=== PATIENT | female | born 1955 | race Caucasian/White ===

== ENCOUNTER 2021-04-12 18:47 | Emergency (ER) | payer OTHER ==
--- OUTSIDE RECORDS SUMMARY | 2021-04-12 18:50 | XMS REPORT | Continuity of Care Document ---
:1955 Author Organization [facility] t Address [address] [place] [address] Care Team Providers Name Role Phone LINDY Attending Clinician Unavailable Garland Ngo MD Attending Clinician Only, Test Attending Clinician Unavailable Doctor Unassigned, Name Attending Clinician Unavailable ANISHA Attending Clinician Unavailable FAITH Attending Clinician Unavailable Damion RAI, L Attending Clinician LINDY Admitting Clinician Unavailable Garland Ngo MD Admitting Clinician Payers Payer Name Policy Type Policy Number Effective Date Expiration Date S ource Problems This patient has no known problems. Allergies, Adverse Reactions, Alerts Allergy Allergy Status Severity Reaction(s) Onset Inactive Treating Comm ents Source Name Type Date Date Clinician morphine DA Active [place] 2015-11 [facility] [place] codeine DA Active [place] 2015-11 [facility] Morphine Adverse Active nausea [facility] Reaction vomiting [facility] Codeine Adverse Active nausea [facility] Sulfate Reaction [facility] Medications Ordered Filled Start Stop Current Ordering Indication Dosage Frequency Signature Comments Components Source Medication Medication Date Date Medication? Clinician (SIG) Name Name Taina Her Yes Na Yan as needed [facility] 8[facility]14 for nausea [facility] Zoloft Zoloft Yes Na Yan [address] [facility] Mirtazapine Mirtazapine Yes Na Yan [address] [facility] Losartan Losartan Yes Na Yan [address] Potassium-H Pot[facility]-H [facility] CTZ [facility] Esomeprazol Esomeprazol Yes Na Yan [address] [facility] Magnesium e Magnesium L [facility] Gabapentin Gabapentin Yes Na Yan [address] [facility] Atenolol Atenolol Yes Na Yan [address] [facility] Procedures This patient has no known procedures. Encounters Start End Encounter Admission Attending Care Care Encounter Source Date/Time Date/Time Type Type Clinicians Facility Department ID 2021-04-12 2021-04-12 Outpatient [facility] [id number] [place] 00:00:00 00:00:[address] 2021-04-12 2021-04-12 Outpatient [facility] [id number] [place] 00:00:00 00:00:[address] 2021-03-29 2021-03-29 Outpatient [facility] [id number] [place] 00:00:00 00:00:[address] 2021-03-12 2021-03-13 Outpatient [facility] [id number] [place] 00:00:00 00:00:00 MAJOR [address] 2021-03-07 2021-03-07 Outpatient [facility] [id number] [place] 00:00:00 00:00:00 MAJOR [address] 2021-03-02 2021-03-02 Outpatient [facility] [id number] 2021-02-06 2021-02-06 Outpatient [facility] [id number] [place] 00:00:00 00:00:00 MAJOR [address] 2021-02-06 2021-02-06 Outpatient LINDY, [facility] [id number] [place] 00:00:00 00:00:00 MAJOR [address] 2021-02-02 2021-02-02 Outpatient [facility] [id number] [facility] St 00:00:00 00:00:00 [facility] 2020-11-18 2020-11-18 [facility] [id number] [facility] 00:00:00 00:00:00 [facility] 2020-11-08 2020-11-08 [facility] [id number] 06:53:00 08:36:00 Aleshia Pitt [id number] [place] 4.2.7.2.686 Surgical [id number] [place] [id number] 2020-11-07 2020-11-07 Laboratory Only, [facility] [id number] 13:00:29 13:15:29 Only Test Bright [id number] [place] 4.2.7.2.686 [place] [id number] 2020-11-07 2020-11-07 Orders Doctor SANGEETHA [id number] 00:00:00 00:00:00 Only Unassigned, ZA 350.1.13.10 [facility] 4.2.7.2.686 [id number] 2020-10-28 2020-10-28 [facility] [id number] [facility] 00:00:00 00:00:00 [facility] 2020-08-28 2020-08-28 Outpatient ANISHA, [facility] [id number] [place] 00:00:00 00:00:00 JESSICA [address] 2020-08-28 2020-08-28 Outpatient FAITH, [facility] [id number] [place] 00:00:00 00:00:[address] GITA [address] 2020-08-25 2020-08-25 Office Damion [facility] [id number] 10:46:34 11:05:51 Visit [facility] [id number] Surgical 2.7.2.686 [facility] [id number] Tuyet Novoa 2020-08-25 2020-08-25 [facility] [id number] [facility]00 [facility] Out[facility] Clinics 2020-07-02 2020-07-02 [facility] [id number] 13:30:00 13:30:00 [facility] [facility] Outpati ent Clinics 2020-06-30 2020-06-30 [facility] [id number] 10:00:00 10:00:00 [place] [facility] Medicine Outpati ent Clinics 2020-06-30 2020-06-30 [facility] [id number] 08:32:00 08:32:00 [place] [facility] [facility] Medicine Outpati ent Clinics 2020-03-17 2020-03-17 [facility] [id number] 15:52:00 15:52:00 [place] [facility] [facility] Outpati ent Clinics 2020-03-16 2020-03-16 [facility] [id number] 11:00:00 11:00:00 [place] [facility] Outpati ent Clinics 2020-02-15 2020-02-15 [facility] [id number] 10:00:00 10:00:00 t [facility] Outpati ent Clinics Results Test Description Test Time Test Comments Results Result [facility] phil Comments BREAST,BIOPSY 2018-11-19 09:06:00 RUN DATE: 11/19/18 [facility] PAGE 1 RUN TIME: 1021 Specimen Inquiry RUN USER: INTERFACE ALBERTO ENT: ROSMERY GREENBERG LOC: [facility] U #: [id number] AGE/SX: 63/F ROOM: RE11/18/18REG DR: Sangeetha Raines III, MD : 51 BED: DIS: STATUS: PRE REF TLOC: SPEC #: [id number] RECD: 11/18/18 STATUS: STEPHANIE SAMANTHA #: [id number] ANI: 11/18/18- [facility] DR: Sangeetha Raines III, MD ENTERED: 11/18/18 SP TYPE: BREABX OTHR DR: Salud Becerril MD ORDERED: LEVEL IV CODES: [id number] - BREAST, NOS COPIES TO: Sangeetha Raines III, MD [address] [place] [address] [place] [address] [place] [address] PROCEDURES: LEVEL IV (Incomplete) TISSUES: BREAST, NOS - LEFT BREAST BIOPSY CLINICAL HISTORY 63 year old, indeterminant mass, 14g x 3, ? cyst/mass not seen post biopsy (wpd) NOTE: Left breast 12:00 mass (0.7 cm): Biopsy: 11/18/18 @ 1025 In formalin: 11/18/18 @ 1026 Out of formalin: 11/18/18 @ 1825 FINAL DIAGNOSIS LEFT breast 12:00, CNB: - mild usual ductal hyperplasia - columnar cell change with microcalcifications Tissue code 1 CPT code(s): 87973 cds/kr CONTINUED ON NEXT PAGE RUN DATE: 11/19/18 [facility] PAGE 2 RUN TIME: 1021 Specimen Inquiry RUN USER: INTERFACE SPEC #: [id number] PATIENT: ROSMERY GREENBERG SHREYAS #[id number] (Continued) ------- GROSS DESCRIPTION ANATOMIC SOURCE OF TISSUE (per Requisition): Left breast 12:00 mass (0.7 cm) The specimen is received in a formalin-filled container, labeled with the patient's name and designated "left breast @ 12:00". The specimen consists of three off-white and yellow soft tissue cores ranging from 1.2 - 1.8 cm in length and is submitted in toto in one cassette. hz/wpd 01/02/19 @ 3985 MICROSCOPIC DESCRIPTION LEFT breast cores from 12:00 consists of benign breast parenchyma with columnar cell change with microcalcifications and foci of mild ductal hyperplasia without atypia. cristian/kirsty -- Signed Biju Del Rio 11/19/18 0906 END OF REPORT
[2021-04-12] MEDS ORDERED: HYDROCODONE/APAP 5/325 MG TAB ONE (19:40)
--- NOTE | 2021-04-12 19:58 | RAD REPORT ---
EXAM DESCRIPTION: RAD - Knee Left 3 View - 04/12/2021 7:47 pm CLINICAL HISTORY: trauma COMPARISON: Knee Left 3 view dated 12/09/2015 FINDINGS: Left total knee prosthesis in place. No radiographic evidence for loosening. No fracture o r acute finding of the [place] bone. There is extensive soft tissue injury anterior to the joint.No joint effusion confirmed on this study and no fluid fluid level in the joint space. No foreign body seen in the soft tissues. Intra-articular extension is unlikely but cannot be exclud ed solely on the basis of plain film. IMPRESSION: Left total knee prosthesis in place. No acute bone or implant finding. Extensive soft tissue injury anterior to the knee. Intra-articular extension not confirmed by plain f ilm but plain film alone is not able to exclude intra-articular involvement.
[2021-04-12] MEDS ORDERED: NA CHLORIDE 0.9% 100 ML ONE (21:43)
[2021-04-12] MEDS ORDERED: CEFAZOLIN SODIUM 1 GM/VIAL ONE (21:43)
[2021-04-12] MEDS ORDERED: TETANUS & DIPHTHERIA TOX,ADULT 0.5 ML VIAL ONE (21:44)
[2021-04-12 21:47] LABS: Absolute Lymphocytes (CBC) 1.4 K/uL (0.7-4.9); Basophils % 0.6 % (0-1.3); Hematocrit 30.6 % (36.0-45.0); Lymphocytes % 15.8 % (15.3-44.8); MPV 8.9 fL (7.6-11.3)
[2021-04-12 22:03] LABS: Protime INR 0.95
[2021-04-12 22:12] LABS: ALT/SGPT 21 U/L (12-78); AST/SGOT 18 U/L (15-37); Albumin 3.7 g/dL (3.4-5.0); Alkaline Phosphatase 89 U/L (45-117); BUN Blood Urea Nitrogen 26 mg/dL (7-18); Bicarbonate 26 mmol/L (21-32); Bilirubin Direct < 0.1 mg/dL (0-0.2); Bilirubin Total 0.3 mg/dL (0.2-1.0); Glucose Level 102 mg/dL (74-106); Potassium 4.6 mmol/L (3.5-5.1); Protein, Total 6.9 g/dL (6.4-8.2); Sodium Level 141 mmol/L (136-145)
--- NOTE | 2021-04-12 23:04 | EDPHYS ---
Physician Documentation [facility] Name: Estela Salvador Age: 65 yrs Sex: Female : 1955 Arrival Date: 04/12/2021 Time: 19:03 Bed 20 Private MD: ED Physician Jeffrey Leon HPI: 04/12 19:18 This 65 yrs old Female presents to ER via EMS with complaints of Knee Injury. 7 19:18 Details of fall: The patient fell from an upright position, while walking. Onset: The mh7 symptoms/episode began/occurred today, at 17:30. Associated injuries: The patient sustained left knee, painful injury, open surgical wound. Severity of symptoms: At their worst the symptoms were moderate, earlier today, in the emergency department the symptoms are unchanged. The patient has been recently seen by a physician: earlier today, Saw her orthopedic surgeon today for follow up s/p knee replacement surgery. States that she tripped and fell while walking up some stairs. She hit her left knee on concrete. She had knee replacement surgery of left knee 4 weeks ago and surgical wound is know open again after fall. She denies any head injury, LOC, or other complaints.. Historical: - Allergies: 19:08 No Known Allergies; ld1 - PMHx: 19:08 Renal Disease; ld1 - PSHx: 19:08 Knee surgery; ld1 - Immunization history:: Adult Immunizations up to date. - Social history:: Smoking status: Patient denies any tobacco usage or history of. ROS: 19:18 Constitutional: Negative for fever, chills, and weight loss, Eyes: Negative for injury, mh7 pain, redness, and discharge, ENT: Negative for injury, pain, and discharge, Neck: Negative for injury, pain, and swelling, Cardiovascular: Negative for chest pain, palpitations, and edema, Respiratory: Negative for shortness of breath, cough, wheezing, and pleuritic chest pain, Abdomen/GI: Negative for abdominal pain, nausea, vomiting, diarrhea, and constipation, Back: Negative for injury and pain, : Negative for injury, bleeding, discharge, and swelling, Neuro: Negative for headache, weakness, numbness, tingling, and seizure, Psych: Negative for depression, anxiety, suicide ideation, homicidal ideation, and hallucinations, Allergy/Immunology: Negative for hives, rash, and allergies. Exam: 19:18 Constitutional: This is a well developed, well nourished patient who is awake, alert, mh7 and in no acute distress. Head/Face: Normocephalic, atraumatic. Eyes: Pupils equal round and reactive to light, extra-ocular motions intact. Lids and lashes normal. Conjunctiva and sclera are non-icteric and not injected. Cornea within normal limits. Periorbital areas with no swelling, redness, or edema. Neck: Trachea midline, no thyromegaly or masses palpated, and no cervical lymphadenopathy. Supple, full range of motion without nuchal rigidity, or vertebral point tenderness. No Meningismus. Chest/axilla: Normal chest wall appearance and motion. Nontender with no deformity. No lesions are appreciated. Cardiovascular: Regular rate and rhythm with a normal S1 and S2. No gallops, murmurs, or rubs. Normal PMI, no JVD. No pulse deficits. Respiratory: Lungs have equal breath sounds bilaterally, clear to auscultation and percussion. No rales, rhonchi or wheezes noted. No increased work of breathing, no retractions or nasal flaring. Abdomen/GI: Soft, non-tender, with normal bowel sounds. No distension or tympany. No guarding or rebound. No evidence of tenderness throughout. Back: No spinal tenderness. No costovertebral tenderness. Full range of motion. Neuro: Awake and alert, GCS 15, oriented to person, place, time, and situation. Cranial nerves II-XII grossly intact. Motor strength 5/5 in all extremities. Sensory grossly intact. Cerebellar exam normal. Normal gait. Psych: Awake, alert, with orientation to person, place and time. Behavior, mood, and affect are within normal limits. 19:18 Musculoskeletal/extremity: Extremities: noted in the left anterior knee: pain, complete dehiscence of surgical wound of left knee. 19:18 Skin: injury, complete dehiscence of surgical wound on left knee. Vital Signs: 19:04 BP 142 / 62; Pulse 59; Resp 18; Temp 99.0(O); Pulse Ox 100% on R/A; Pain 3/10; ld1 20:14 BP 140 / 57; Pulse 62; Resp 16 S; Pulse Ox 97% on R/A; ad5 21:37 BP 136 / 63; Pulse 64; Resp 16 S; Pulse Ox 98% on R/A; ad5 22:39 BP 134 / 73; Pulse 65; Resp 16 S; Pulse Ox 98% on R/A; ad5 MDM: 22:54 Differential diagnosis: contusion, fracture, laceration. Data reviewed: vital signs, [facility] nurses notes, EMS record, lab test result(s), CBC, electrolytes, radiologic studies, plain films. Data interpreted: Pulse oximetry: on room air is 98 %. Interpretation: normal. Counseling: I had a detailed discussion with the patient and/or guardian regarding: the historical points, exam findings, and any diagnostic results supporting the discharge/admit diagnosis, lab results, radiology results, the need to transfer to another facility, [facility] does not immediately have the required specialist. Response to treatment: the patient's symptoms have mildly improved after treatment. 23:03 Patient medically screened. [facility] 04/12 20:50 Order name: SARS-COV-2 RT PCR; Complete Time: 20:52 [facility] 04/12 21:15 Order name: CBC with Diff; Complete Time: 22:04 [facility] 04/12 21:15 Order name: Basic Metabolic Panel; Complete Time: 22:53 [facility] 04/12 21:15 Order name: LFT's; Complete Time: 22:53 [facility] 04/12 21:15 Order name: Protime (+inr); Complete Time: 22:53 [facility] 04/12 19:17 Order name: Knee Left 3 View XRAY; Complete Time: 20:00 [facility] 04/12 21:15 Order name: Saline Lock; Complete Time: 21:37 [facility] 04/12 21:15 Order name: Ptt, Activated; Complete Time: 22:53 [facility] Administered Medications: 19:24 Drug: [place] (HYDROcodone-acetaminophen) 5 mg-325 mg 1 tabs {Note: RASS 0.} Route: PO; ad5 21:21 Follow up: Response: No adverse reaction; Pain is decreased ad5 21:32 Drug: Tetanus-Diphtheria Toxoid Adult 0.5 ml {[employer]: [employer] Exp: ad5 04/22/2022. Lot #: [id number]. } Route: IM; Site: right deltoid; 22:48 Follow up: Response: No adverse reaction ad5 21:36 Drug: Ancef (cefazolin) 1 grams Route: IVPB; Site: right antecubital; ad5 22:48 Follow up: IV Status: Completed infusion ad5 Disposition: 04/12/21 23:03 Patient has left against medical advice. Impression: Fall-Mechanical, Surgical Wound Dehiscence, Left Knee, Exposed Hardware. - Patients states they are going to Home. - Condition is Stable. - Discharge Instructions: Fall Prevention in the Home, Vupg-ae-Trad, Wound Dehiscence, Usfp-jn-Lcts. Follow up: Private Physician; When: 24 Hours; Reason: Worsening of condition, Recheck today's complaints, Continuance of care, Re-evaluation by your physician. - Problem is new. - Symptoms are unchanged. Signatures: Dispatcher [employer] Jeffrey Nice MD MD 7 Destini Bunch RN RN ld1 Greg Villagran ad5 Corrections: (The following items were deleted from the chart) 20:03 19:38 CORONAVIRUS+MR.LAB.BRZ ordered. EDMS EDMS 23:46 23:03 04/12/2021 23:03 Patients has left against medical advice. Impression: ad5 Fall-Mechanical; Surgical Wound Dehiscence, Left Knee, Exposed Hardware. Patient states they are going to Home. Condition is Stable. Follow up: Private Physician; When: 24 Hours; Reason: Worsening of condition, Recheck today's complaints, Continuance of care, Re-evaluation by your physician. Problem is new. Symptoms are unchanged. mh7
--- NOTE | 2021-04-12 23:04 | ER ---
Nurse's Notes [facility] Name: Estela Salvador Age: 65 yrs Sex: Female : 1955 Arrival Date: 04/12/2021 Time: 19:03 Bed 20 Private MD: Diagnosis: Fall-Mechanical;Surgical Wound Dehiscence, Left Knee, Exposed Hardware Presentation: 04/12 19:04 Chief complaint: EMS states: pt feel at 0600 and split open left knee, pt had a knee ld1 replacement 4 weeks ago. Coronavirus screen: At this time, the client does not indicate any symptoms associated with coronavirus-19. Ebola Screen: No symptoms or risks identified at this time. Initial Sepsis Screen: Does the patient meet any 2 criteria? No. Patient's initial sepsis screen is negative. Does the patient have a suspected source of infection? No. Patient's initial sepsis screen is negative. Risk Assessment: Do you want to hurt yourself or someone else? Patient reports no desire to harm self or others. Onset of symptoms was April 12, 2021. 19:04 Method Of Arrival: EMS: [facility] ld1 19:04 Acuity: OANH 3 ld1 Triage Assessment: 19:08 General: Appears in no apparent distress. uncomfortable, Behavior is calm, cooperative, ld1 appropriate for age. Pain: Complains of pain in lateral aspect of left knee Pain currently is 3 out of 10 on a pain scale. Quality of pain is described as throbbing, Pain began 1 hour ago. Is continuous. EENT: No signs and/or symptoms were reported regarding the EENT system. Neuro: Level of Consciousness is awake, alert, obeys commands, Oriented to person, place, time, situation, Appropriate for age. Cardiovascular: Capillary refill < 3 seconds Patient's skin is warm and dry. Respiratory: Airway is patent Respiratory effort is even, unlabored, Respiratory pattern is regular, symmetrical. GI: Abdomen is flat, non-distended. : No signs and/or symptoms were reported regarding the genitourinary system. Derm: No signs and/or symptoms reported regarding the dermatologic system. Musculoskeletal: Fall injury to left knee. Injury Description: Knee injury. Pt feel and split open left knee. Historical: - Allergies: 19:08 No Known Allergies; ld1 - PMHx: 19:08 Renal Disease; ld1 - PSHx: 19:08 Knee surgery; ld1 - Immunization history:: Adult Immunizations up to date. - Social history:: Smoking status: Patient denies any tobacco usage or history of. Screenin:12 Abuse screen: Denies threats or abuse. Denies injuries from another. Nutritional ld1 screening: No deficits noted. Tuberculosis screening: No symptoms or risk factors identified. Fall Risk None identified. Assessment: 19:12 Reassessment: See triage assessment. ld1 19:35 Reassessment: Patient appears in no apparent distress at this time. No changes from ad5 previously documented assessment. Patient is alert, oriented x 3, equal unlabored respirations, skin warm/dry/pink. 20:53 Reassessment: Patient appears in no apparent distress at this time. No changes from ad5 previously documented assessment. Patient and/or family updated on plan of care and expected duration. Pain level reassessed. Patient is alert, oriented x 3, equal unlabored respirations, skin warm/dry/pink. Pain: Complains of pain in LLE. 21:37 Reassessment: Patient appears in no apparent distress at this time. No changes from ad5 previously documented assessment. Patient and/or family updated on plan of care and expected duration. Pain level reassessed. Patient is alert, oriented x 3, equal unlabored respirations, skin warm/dry/pink. 22:39 Reassessment: Patient appears in no apparent distress at this time. No changes from ad5 previously documented assessment. Patient and/or family updated on plan of care and expected duration. Pain level reassessed. 23:44 Reassessment: Pt request to leave MD HAO at bedside speaking with pt regarding plan of ad5 care, questions/concerns addressed. 04/13 00:20 Reassessment: Pt assisted to wheelchair and vehicle by RN x 2. NAD noted upon pt ad5 leaving dept. Vital Signs: 04/12 19:04 BP 142 / 62; Pulse 59; Resp 18; Temp 99.0(O); Pulse Ox 100% on R/A; Pain 3/10; ld1 20:14 BP 140 / 57; Pulse 62; Resp 16 S; Pulse Ox 97% on R/A; ad5 21:37 BP 136 / 63; Pulse 64; Resp 16 S; Pulse Ox 98% on R/A; ad5 22:39 BP 134 / 73; Pulse 65; Resp 16 S; Pulse Ox 98% on R/A; ad5 ED Course: 19:03 Patient arrived in ED. ld1 19:03 Jeffrey Leon MD is Attending Physician. mh7 19:08 Triage completed. ld1 19:08 Arm band placed on right wrist. ld1 19:12 Destini Bunch, RN is Primary Nurse. ld1 19:12 Patient has correct armband on for positive identification. Placed in gown. Bed in low ld1 position. Call light in reach. Side rails up X2. Pulse ox on. NIBP on. Door closed. Noise minimized. Warm blanket given. 19:47 Knee Left 3 View XRAY In Process Unspecified. EDMS 20:14 No provider procedures requiring assistance completed. Dressings: saline soaked sterile ad5 gauze dressing to L knee. Wound care: to located on left knee was dressed with 4X4s, Kerlix, ABD pads, sterile saline soaked gauze, Patient tolerated well. 20:57 initiated a transfer with Jannette from [facility]. mw2 21:15 [facility] denied due to capacity. mw2 21:[address] Eugene Núñez's office got a hold of their answering service spoke to [facility] Trav. Trav took the patient's information and will contact Dr. Núñez. 21:34 doc to doc with the recreation facilities supervisor phsychian for Dr. Núñez. mw2 21:37 Initial lab(s) drawn, by me, sent to lab. Inserted saline lock: 20 gauge in right ad5 antecubital area, using aseptic technique. 21:40 called [facility] back spoke to Ines explained to her that we contacted 2 Dr. Núñez's office and they want the patient transfer back to [facility]. Ines stated " like Jannette said the Hospital is at capacity." Dr. Leon asked her " can we try getting the patient transferred to the Emergency Department?". Ines stated " the Emergency Department in at capacity as well." Dr. Leon got on the phone and explained that the patient needs to be transferred to [facility], and see if they can talk to someone to find her placement. Ines put Dr. Leon on hold for a while, and eventually she hung up. 21:56 called [facility] back spoke to Maria Elena and explained the situation about mw2 the transfer. She stated "like they have said before they are at capacity." Dr. Leon wanted to talk to Maria Elena to see if she can help us find placement for the patient. When I transferred the call Dr. Leon went to machine pecan picker but Maria Elena hung up. 22:06 called [facility] machine operator to see if we could talk to the [employer] L[employer] Automatic Window Repairer. They paged mw2 her and awaiting her call. 22:[address] Núñez's office again to see if they can help us find placement for the mw2 patient. 22:34 Called [facility] spoke with Maria Elena to see if there is other facilities mw that Dr. Núñez practices at. She stated " I'm not to sure let me see if there are any beds that have come available." currently put on hold. 22:46 I was taken off hold and Maria Elena stated "I checked to see if there are any beds and we mw2 still are at capacity, and I don't know if there are other places Dr. Núñez practices at." I asked "do you think you could contact him for us." She stated the only number that we have is his office. I can give you the number.". 23:15 Knee immobilizer applied on left knee. ad5 23:17 IV discontinued, intact, bleeding controlled, No redness/swelling at site. Pressure ad5 dressing applied. Administered Medications: 19:24 Drug: [place] (HYDROcodone-acetaminophen) 5 mg-325 mg 1 tabs {Note: RASS 0.} Route: PO; ad5 21:21 Follow up: Response: No adverse reaction; Pain is decreased ad5 21:32 Drug: Tetanus-Diphtheria Toxoid Adult 0.5 ml {Distribution Sales Representative: [employer] ([employer] Exp: ad5 04/22/2022. Lot #: [id number]. } Route: IM; Site: right deltoid; 22:48 Follow up: Response: No adverse reaction ad5 21:36 Drug: Ancef (cefazolin) 1 grams Route: IVPB; Site: right antecubital; ad5 22:48 Follow up: IV Status: Completed infusion ad5 Outcome: 23:17 AMA AMA form signed ad5 23:17 Condition: stable 23:17 Discharge instructions given to patient, significant other, Instructed on discharge instructions, follow up and referral plans. wound care, Demonstrated understanding of instructions, follow-up care, wound care. 23:46 Patient left the ED. ad5 Signatures: Dispatcher [employer] EDMS Fiorella Perry mw2 Jeffrey Leon MD MD 7 Destini Bunch RN RN ld1 Greg Villagran ad5 Corrections: (The following items were deleted from the chart) 20:54 20:53 Pain: Complains of pain in left knee ad5 ad5 22:42 20:57 initiated a transfer with Wesley from [place] [id number] mw2 :42 21:15 [facility] denied due to capacity [place] [id number] 22:42 21:40 called [facility] back spoke to Ines explained to her that we contacted Dr. alberto Núñez's office and they want the patient transfer back to [facility]. Ines stated " like Jannette said the Hospital is at capacity." Dr. Leon asked her " can we try getting the patient transferred to the Emergency Department?". Ines stated " the Emergency Department in at capacity as well." Dr. Leon got on the phone and explained that the patient needs to be transferred to [facility], and see if they can talk to someone to find her placement. Ines put Dr. Leon on hold for a while, and eventually she hung up. [facility] 22:42 21:56 called [facility] back spoke to Maria Elena and explained the situation about the [facility] transfer. She stated "like they have said before they are at capacity." Dr. Leon wanted to talk to Maria Elena to see if she can help us find placement for the patient. When I transferred the call Dr. Leon went to machine pecan picker but Maria Elena hung up. mw2
[2021-04-12 23:53] VITALS: TEMP 99
[2021-04-12 23:56] VITALS: O2SAT 98
[2021-04-12 23:57] VITALS: BP 134/73
== END 2021-04-12 23:46 | disposition left against medical advice (07) ==
LOC: ER 18:47
DX: T81.31XA Disruption of external operation (surgical) wound, not elsewhere classified, initial encounter (principal); W01.0XXA Fall on same level from slipping, tripping and stumbling without subsequent striking against object, initial encounter; Y93.01 Activity, walking, marching and hiking; Z96.652 Presence of left artificial knee joint; Z20.822 Contact with and (suspected) exposure to COVID-19; Z23 Encounter for immunization
CPT/HCPCS: 96365; 85025; 80048; 36415; 85610; 80076; 85730; 73562; 90471; 90714; 99284; U0003; J0690

== ENCOUNTER 2023-06-26 12:52 | Emergency (ER) | payer OTHER ==
--- OUTSIDE RECORDS SUMMARY | 2023-06-26 12:56 | XMS REPORT | Continuity of Care Document ---
:1955 Author Organization [facility] t Address [address] [place] [address] [place] [id number] Care Team Providers Name Role Phone ÁNGEL MELENDEZ Primary Care Physician Unavailable Kalyan Hong Attending Clinician Unavailable Lila Prescott Attending Clinician Unavailable Cathy Yan Attending Clinician Unavailable ALESHIA NGO Attending Clinician Unavailable Andrew Raines Attending Clinician Unavailable EUGENE ISRAEL Attending Clinician Unavailable ILIA SILVA Attending Clinician Unavailable Gucci Horan Attending Clinician Unavailable XOCHILT ALFONSO Attending Clinician Unavailable MD XOCHILT ALFONSO Attending Clinician Unavailable MD EUGENE ISRAEL Attending Clinician Unavailable Aleshia Ngo MD Attending Clinician Only, Adc Test Attending Clinician Unavailable Doctor Unassigned, [place] Attending Clinician Unavailable MD GITA CUEVAS Attending Clinician Unavailable GITA CUEVAS Attending Clinician Unavailable JESSICA LANCASTER Attending Clinician Unavailable Ilia Silva MD Attending Clinician ALESHIA NGO Admitting Clinician Unavailable Andrew Raines Admitting Clinician Unavailable Physician, No Primary or Family Admitting Clinician UnavailXOCHILT Bains Admitting Clinician Unavailable MD XOCHILT ALFONSO Admitting Clinician Unavailable EUGENE ISRAEL Admitting Clinician Unavailable MD EUGENE ISRAEL Admitting Clinician Unavailable Jeni RAI, Aleshia Haque Admitting Clinician MD GITA CUEVAS Admitting Clinician Unavailable Payers Payer Name Policy Type Policy Number Effective Date Expiration Date S katheryn [employer] [place] - [id number] 2008 OUT OF STATE 00:00:00 [employer] [id number] 2018 00:00:00 Problems Condition Condition Condition Status Onset Resolution Last Treating Co mments Source Name Details Category Date Date Treatment Clinician Date Left knee Left knee Disease Active Uni vers pain pain 1-26 ity of 00:00: [place] [address] Medical Branch [id number] Decreased Problem Com mon hearing of Spirit left ear - [facility] [id number] Mixed Problem Common hyperlipid Spirit emia - [facility] [id number] Neuropathy Problem Co mmon Spirit - [facility] [id number] Chronic Problem Common fatigue [facility] [id number] Gastroesop Problem Co mmon hageal Spirit reflux - [facility] disease [facility] esophagiti Medica l s [place] [id number] Depression Problem Co mmon with Spirit anxiety - [facility] Vitamin D Vitamin D Problem Com mon deficiency deficiency Sp deloris - [facility] [id number] Primary Problem Commo n osteoarthr Spirit itis of - [facility] both knees [facility] [id number] Body mass Problem Com mon index Spirit (BMI) - [facility] 37.0-37.9, [facility] [id number] Primary Problem Common insomnia [facility] - [facility] [id number] Elevated Problem Commo n blood Spirit pressure - [facility] reading with [facility] diagnosis Medical of [place] hypertensi on [id number] +5th digit Problem Co mmon eff Spirit 08/17/20*CK - [facility] D (chronic St kidney [facility] disease), Medical stage III Center [id number] Stage 3b Problem Comm on chronic Spirit kidney - [facility] disease ([facility] Allergies, Adverse Reactions, Alerts Allergy Allergy Status Severity Reaction(s) Onset Inactive Treating Comm ents Source Name Type Date Date Clinician morphine DA Active MO 2015-11 [facility] 12-26 Clear 00:00: [place] 00 [facility] codeine DA Active MO 2015-11 [facility] 12-26 Clear 00:00: [place] 00 [facility] morphine DA Active MO NAUSEA 2015-11 [facility] 12-26 [place] 00:00: d 00 [facility] codeine DA Active MO NAUSEA 2015-11 [facility] 12-26 [place] 00:00: d 00 [facility] codeine codeine Active nausea and Comm on vomiting [facility] morphine morphine Active nausea and Co mmon vomiting [facility] NO KNOWN Drug Active Univers ALLERGIE Class ity of S [facility] Social History Social Habit Start Date Stop Date Quantity Comments Source Exposure to Not sure [facility] SARS-CoV-2 [place] [facility] (event) Branch History of Common Spirit - Tobacco Use [facility] Sex Assigned At Common Sp deloris - [facility] Tobacco use and 2020-11-06 2020-11-06 Never used Universit y of exposure 00:00:00 00:00:00 [facility] Alcohol intake 2020-11-06 2020-11-06 Current University 00:00:00 00:00:00 non-drinker of [facility] alcohol Branch (finding) Smoking Status Start Date Stop Date Source Never Smoker [facility] Medications Ordered Filled Start Stop Current Ordering Indication Dosage Frequency Signature Comments Components Source Medication Medication Date Date Medication? Clinician (SIG) Name Name Scopolamine Scopolamine 2021-11- No Scopolamin 1 MG/3DAYS 1 MG/3DAYS 12-08 e 1 00:00: 00:00 MG/3DAYS 00 :00 ZyrTEC ZyrTEC No 1{table QD ZyrTEC Allergy 10 Allergy 10 06-18 t} Allergy 10 MG MG 00:00: MG 00 Flonase Flonase No QD Flonase 06-18 00:00: 00 Flonase Flonase 0 No QD Flonase 06-18 00:00: 00 ZyrTEC ZyrTEC No 1{table QD ZyrTEC Allergy 10 Allergy 10 8-02 t} Allergy 10 MG MG 00:00: MG 00 ZyrTEC ZyrTEC No 1{table QD ZyrTEC Allergy 10 Allergy 10 06-18 t} Allergy 10 MG MG 00:00: MG 00 Flonase Flonase No QD Flonase 06-18 00:00: 00 Pantoprazol Pantoprazol 2021-0 No 1{table QD Pantoprazo e Sodium 40 e Sodium 40 7-21 t} le Sodium MG MG 00:00: 40 MG 00 Pantoprazol Pantoprazol No 1{table QD Pantoprazo e Sodium 40 e Sodium 40 721 t} le Sodium MG MG 00:00: 40 MG 00 Pantoprazol Pantoprazol No 1{table QD Pantoprazo e Sodium 40 e Sodium 40 7-21 t} le Sodium MG MG 00:00: 40 MG 00 Pantoprazol Pantoprazol No 1{table QD Pantoprazo e Sodium 40 e Sodium 40 7-21 t} le Sodium MG MG 00:00: 40 MG 00 Benzonatate Benzonatate 2021- No TID Benzonatat 200 MG 200 MG 06-03 e 200 MG 00:00: 00:00 00 :00 Benzonatate Benzonatate 2021- No TID Benzonatat 200 MG 200 MG 06-03 e 200 MG 00:00: 00:00 00 :00 esomeprazol 2019- Yes 40mg Take 40 mg Univers e 40 mg 2-23 by mouth. ity of capsule 14:36: [place] 14 Medical Branch losartan-hy 2019-11 Yes 1{tbl} Take 1 Un hang drochloroth 2-23 tablet by ity of iazide 14:36: mouth. [place] 100-12.5 mg 14 Medical per tablet Branch lactated 2019-11 Yes 1000mL at 100 Unive rs ringers IV 2-23 mL/hr, ity of infusion 14:15: 1,000 mL, [place] 1[place]000 [place] 00 IV Medical Infusion, Branch CONTINUOUS , Starting Fri11/08/20 at 0815, Until Discontinu ed, Routine, PACU ondansetron 2019-11 Yes 4mg 4 mg, Slow Univers (ZOFRAN 2-23 IV Push, ity of (PF)) 14:00: PRN, 1 [place] injection 4 21 dose, Medical mg Starting Branch Fri11/08/20 at 0800, Until Discontinu ed, Routine, Nausea and Vomiting (N/V), PACU lactated 2019-11 2020- No 1000mL at 42 Unive rs ringers IV 2-23 12-23 mL/hr, ity of infusion 13:15: 13:14 1,000 mL, [place] as 1,000 mL 00 :00 IV Medical Infusion, Branch ONCE, 1 dose, Fri11/08/20 at 0715, Routine, DSU Pre-op esomeprazol 2019-11 Yes 40mg Take 40 mg Univers e 40 mg 0-09 by mouth. ity of capsule 15:59: [address] losartan-hy 2019-11 Yes 1{tbl} Take 1 Un hang drochloroth 0-09 tablet by ity of iazide 15:59: mouth. [place] 100-12.5 mg 53 Medical per tablet Branch esomeprazol 2019-11 Yes 40mg Take 40 mg Univers e 40 mg 0-09 by mouth. ity of capsule 15:59: [address] losartan-hy 2019-11 Yes 1{tbl} Take 1 Un hang drochloroth 0-09 tablet by ity of iazide 15:59: mouth. [place] 100-12.5 mg 53 Medical per tablet Branch esomeprazol 2019-11 Yes 40mg Take 40 mg Univers e 40 mg 0-09 by mouth. ity of capsule 15:59: [address] losartan-hy 2019-11 Yes 1{tbl} Take 1 Un hang drochloroth 0-09 tablet by ity of iazide 15:59: mouth. [place] 100-12.5 mg 53 Medical per tablet Branch esomeprazol 2019-11 Yes 40mg Take 40 mg Univers e 40 mg 0-09 by mouth. ity of capsule 15:59: [address] losartan-hy 2019-11 Yes 1{tbl} Take 1 Un hang drochloroth 0-09 tablet by ity of iazide 15:59: mouth. [place] 100-12.5 mg 53 Medical per tablet Branch methylPREDN 2019-11 Yes [id number] 84mg Take 21 Univers ISolone 0-09 tablets by ity of (MEDROL, 00:00: mouth [place] ZENY,) 4 mg 00 SEE-INSTRU Med ical tablets CTIONS. Branch follow package directions diclofenac 2020- Yes [id number] 75mg Take 1 U nivers 75 mg EC 0-09 tablet by ity of tablet 00:00: mouth (two) Medical times Branch daily with meals. methylPREDN 2020- Yes [id number] 84mg Take 21 Univers ISolone 0-09 tablets by ity of (MEDROL, 00:00: mouth [place] ZENY,) 4 mg 00 SEE-INSTRU Med ical tablets CTIONS. Branch follow package directions diclofenac 2019- Yes [id number] 75mg Take 1 U nivers 75 mg EC 0-09 tablet by ity of tablet 00:00: mouth (two) Medical times Branch daily with meals. methylPREDN 2020- Yes [id number] 84mg Take 21 Univers ISolone 0-09 tablets by ity of (MEDROL, 00:00: mouth [place] ZENY,) 4 mg 00 SEE-INSTRU Med ical tablets CTIONS. Branch follow package directions diclofenac 2019- Yes [id number] 75mg Take 1 U nivers 75 mg EC 0-09 tablet by ity of tablet 00:00: mouth (two) Medical times Branch daily with meals. methylPREDN 2019- Yes [id number] 84mg Take 21 Univers ISolone 0-09 tablets by ity of (MEDROL, 00:00: mouth [place] ZENY,) 4 mg 00 SEE-INSTRU Med ical tablets CTIONS. Branch follow package directions diclofenac 2019- Yes [id number] 75mg Take 1 U nivers 75 mg EC 0-09 tablet by ity of tablet 00:00: mouth (two) Medical times Branch daily with meals. methylPREDN 2020- Yes [id number] 84mg Take 21 Univers ISolone 0-09 tablets by ity of (MEDROL, 00:00: mouth [place] ZENY,) 4 mg 00 SEE-INSTRU Med ical tablets CTIONS. Branch follow package directions diclofenac 2019- Yes [id number] 75mg Take 1 U nivers 75 mg EC 0-09 tablet by ity of tablet 00:00: mouth (two) Medical times Branch daily with meals. SERTraline 2019- Yes Univers 50 mg 9-16 ity of tablet 00:00: [place] [address] Medical Branch SERTraline 2020-0 Yes Univers 50 mg 9-16 ity of tablet 00:00: [place] [address] Medical Branch SERTraline 2020-0 Yes Univers 50 mg 9-16 ity of tablet 00:00: [place] [address] Medical Branch SERTraline 2020-0 Yes Univers 50 mg 9-16 ity of tablet 00:00: [place] [address] Medical Branch SERTraline 2020-0 Yes Univers 50 mg 9-16 ity of tablet 00:00: [place] [address] Medical Branch amLODIPine 2020-0 Yes Univers 5 mg tablet 07-20 ity of 00:00: [place] [address] Medical Branch atenoloL 25 2020-0 Yes Univer s mg tablet 07-20 ity of 00:00: [place] [address] Medical Branch amLODIPine 2020-0 Yes Univers 5 mg tablet 07-20 ity of 00:00: [place] [address] Medical Branch atenoloL 25 2020-0 Yes Univer s mg tablet 07-20 ity of 00:00: [place] [address] Medical Branch amLODIPine 2020-0 Yes Univers 5 mg tablet 07-20 ity of 00:00: [place] [address] Medical Branch atenoloL 25 2020-0 Yes Univer s mg tablet 07-20 ity of 00:00: [place] [address] Medical Branch amLODIPine 2020-0 Yes Univers 5 mg tablet 07-20 ity of 00:00: [place] [address] Medical Branch atenoloL 25 2020-0 Yes Univer s mg tablet 07-20 ity of 00:00: [place] [address] Medical Branch amLODIPine 2020-0 Yes Univers 5 mg tablet 07-20 ity of 00:00: [place] [address] Medical Branch atenoloL 25 2020-0 Yes Univer s mg tablet 07-20 ity of 00:00: [place] [address] Medical Branch Zofran Zofran 2020-0 Yes Na Yan as needed C ommon 8-14 for nausea Spirit 00:00: - [facility] 00 [facility] Zofran 4 MG Zofran 4 MG 2020-0 No BID Zofran 4 8-14 MG 00:00: 00 Zofran 4 MG Zofran 4 MG 2020-0 No BID Zofran 4 8-14 MG 00:00: 00 Zofran 4 MG Zofran 4 MG 2020-0 No BID Zofran 4 8-14 MG 00:00: 00 Zofran 4 MG Zofran 4 MG 2020-0 No BID Zofran 4 8-14 MG 00:00: 00 Zofran 4 MG Zofran 4 MG 2020-0 No BID Zofran 4 8-14 MG 00:00: 00 Zofran 4 MG Zofran 4 MG 2020-0 No BID Zofran 4 8-14 MG 00:00: 00 Zofran 4 MG Zofran 4 MG 2020-0 No BID Zofran 4 8-14 MG 00:00: 00 Zofran 4 MG Zofran 4 MG 2020-0 No BID Zofran 4 8-14 MG 00:00: 00 Zofran 4 MG Zofran 4 MG 2020-0 No BID Zofran 4 8-14 MG 00:00: 00 Zofran 4 MG Zofran 4 MG 2020-0 No BID Zofran 4 8-14 MG 00:00: 00 Zofran 4 MG Zofran 4 MG 2020-0 No BID Zofran 4 8-14 MG 00:00: 00 Zofran 4 MG Zofran 4 MG 2020-0 No BID Zofran 4 8-14 MG 00:00: 00 Zofran 4 MG Zofran 4 MG 2020-0 No BID Zofran 4 8-14 MG 00:00: 00 mirtazapine 2020-0 Yes 15mg Take 15 mg Univers 15 mg 6-26 by mouth. ity of tablet 00:00: [address] mirtazapine 2020-0 Yes 15mg Take 15 mg Univers 15 mg 6-26 by mouth. ity of tablet 00:00: [address] mirtazapine 2020-0 Yes 15mg Take 15 mg Univers 15 mg 6-26 by mouth. ity of tablet 00:00: [address] mirtazapine 2020-0 Yes 15mg Take 15 mg Univers 15 mg 6-26 by mouth. ity of tablet 00:00: [address] mirtazapine 2020-0 Yes 15mg Take 15 mg Univers 15 mg 6-26 by mouth. ity of tablet 00:00: [address] Zoloft Zoloft 2019-0 Yes Na Yan 1 tablet Co mmon 4-30 Spirit 00:00: - [facility] 00 [facility] methylPREDN 2016- Yes 84mg Take 21 Uni vers ISolone 0-21 tablets by ity of (MEDROL, 00:00: mouth [place] ZENY,) 4 mg 00 SEE-INSTRU Med ical tablets CTIONS. Branch follow package directions diclofenac 2015-11 Yes 75mg Take 1 Unive rs (VOLTAREN) 0-21 tablet by ity of 75 mg EC 00:00: mouth 2 [place] tablet 00 (two) Medical times Branch daily with meals. methylPREDN 2015-11 Yes 84mg Take 21 Uni vers ISolone 0-21 tablets by ity of (MEDROL, 00:00: mouth [place] ZENY,) 4 mg 00 SEE-INSTRU Med ical tablets CTIONS. Branch follow package directions diclofenac 2015-11 Yes 75mg Take 1 Unive rs (VOLTAREN) 0-21 tablet by ity of 75 mg EC 00:00: mouth 2 [place] tablet 00 (two) Medical times Branch daily with meals. methylPREDN 2015-11 Yes 84mg Take 21 Uni vers ISolone 0-21 tablets by ity of (MEDROL, 00:00: mouth [place] ZENY,) 4 mg 00 SEE-INSTRU Med ical tablets CTIONS. Branch follow package directions diclofenac 2015-11 Yes 75mg Take 1 Unive rs (VOLTAREN) 0-21 tablet by ity of 75 mg EC 00:00: mouth 2 [place] tablet 00 (two) Medical times Branch daily with meals. methylPREDN 2015-11 Yes 84mg Take 21 Uni vers ISolone 0-21 tablets by ity of (MEDROL, 00:00: mouth [place] ZENY,) 4 mg 00 SEE-INSTRU Med ical tablets CTIONS. Branch follow package directions diclofenac 2015-11 Yes 75mg Take 1 Unive rs (VOLTAREN) 0-21 tablet by ity of 75 mg EC 00:00: mouth 2 [place] tablet 00 (two) Medical times Branch daily with meals. methylPREDN 2015-11 Yes 84mg Take 21 Uni vers ISolone 0-21 tablets by ity of (MEDROL, 00:00: mouth [place] ZENY,) 4 mg 00 SEE-INSTRU Med ical tablets CTIONS. Branch follow package directions diclofenac 2015-11 Yes 75mg Take 1 Unive rs (VOLTAREN) 0-21 tablet by ity of 75 mg EC 00:00: mouth 2 [place] tablet 00 (two) Medical times Branch daily with meals. DULoxetine 2015-11 Yes Univers (CYMBALTA) 0-08 ity of 20 mg 00:00: [place] capsule 00 Medical Branch DULoxetine 2015-11 Yes Univers (CYMBALTA) 0-08 ity of 20 mg 00:00: [place] capsule 00 Medical Branch DULoxetine 2015-11 Yes Univers (CYMBALTA) 0-08 ity of 20 mg 00:00: [place] capsule 00 Medical Branch DULoxetine 2015-11 Yes Univers (CYMBALTA) 0-08 ity of 20 mg 00:00: [place] capsule 00 Medical Branch DULoxetine 2015-11 Yes Univers (CYMBALTA) 0-08 ity of 20 mg 00:00: [place] capsule 00 Medical Branch cyanocobala 2015-11 Yes Univer s min 0-06 ity of (VITAMIN 00:00: [place] B12) 1,000 00 Medical mcg/mL Branch injection cyanocobala 2015-11 Yes Univer s min 0-06 ity of (VITAMIN 00:00: [place] B12) 1,000 00 Medical mcg/mL Branch injection cyanocobala 2015-11 Yes Univer s min 0-06 ity of (VITAMIN 00:00: [place] B12) 1,000 00 Medical mcg/mL Branch injection cyanocobala 2015-11 Yes Univer s min 0-06 ity of (VITAMIN 00:00: [place] B12) 1,000 00 Medical mcg/mL Branch injection cyanocobala 2015-11 Yes Univer s min 0-06 ity of (VITAMIN 00:00: [place] B12) 1,000 00 Medical mcg/mL Branch injection pravastatin 2015-11 Yes Univer s (PRAVACHOL) 0-05 ity of 40 mg 00:00: [place] tablet 00 Medical Branch pravastatin 2015-11 Yes Univer s (PRAVACHOL) 0-05 ity of 40 mg 00:00: [place] tablet 00 Medical Branch pravastatin 2015-11 Yes Univer s (PRAVACHOL) 0-05 ity of 40 mg 00:00: [place] tablet 00 Medical Branch pravastatin 2015-11 Yes Univer s (PRAVACHOL) 0-05 ity of 40 mg 00:00: [place] tablet 00 Medical Branch pravastatin 2015-11 Yes Univer s (PRAVACHOL) 0-05 ity of 40 mg 00:00: [place] tablet 00 Medical Branch sulfamethox 0 Yes Univer s azole-trime 9-12 ity of thoprim 00:00: [place] (BACTRIM 00 Medical DS) 800-160 Branch mg per tablet sulfamethox 2016-0 Yes Univer s azole-trime 9-12 ity of thoprim 00:00: [place] (BACTRIM 00 Medical DS) 800-160 Branch mg per tablet sulfamethox 2016-0 Yes Univer s azole-trime 9-12 ity of thoprim 00:00: [place] (BACTRIM 00 Medical DS) 800-160 Branch mg per tablet sulfamethox 2016-0 Yes Univer s azole-trime 9-12 ity of thoprim 00:00: [place] (BACTRIM 00 Medical DS) 800-160 Branch mg per tablet sulfamethox 2016-0 Yes Univer s azole-trime 9-12 ity of thoprim 00:00: [place] (BACTRIM 00 Medical DS) 800-160 Branch mg per tablet Fenoprofen Yes TAKE ONE Uni vers (NALFON) 8-11 (1) ity of 400 mg Cap 00:00: [place]) [place] 00 BY MOUTH Medical TWICE A Branch DAY NEEDED. Fenoprofen Yes TAKE ONE Uni vers (NALFON) 8-11 (1) ity of 400 mg Cap 00:00: [place](S) [place] 00 BY MOUTH Medical TWICE A Branch DAY NEEDED. Fenoprofen Yes TAKE ONE Uni vers (NALFON) 8-11 (1) ity of 400 mg Cap 00:00: [place]SULE(S) [place] 00 BY MOUTH Medical TWICE A Branch DAY NEEDED. Fenoprofen Yes TAKE ONE Uni vers (NALFON) 8-11 (1) ity of 400 mg Cap 00:00: [place]SULE(S) [place] 00 BY MOUTH Medical TWICE A Branch DAY NEEDED. Fenoprofen Yes TAKE ONE Uni vers (NALFON) 8-11 (1) ity of 400 mg Cap 00:00: [place]SULE(S) [place] 00 BY MOUTH Medical TWICE A Branch DAY NEEDED. methylPREDN 0 Yes 84mg Take 21 Uni vers ISolone 1-26 Tabs by ity of (MEDROL, 00:00: mouth [place] ZENY,) 4 mg 00 SEE-INSTRU Med ical tablets CTIONS. Branch follow package directions methylPREDN 0 Yes 84mg Take 21 Uni vers ISolone 1-26 Tabs by ity of (MEDROL, 00:00: mouth [place] ZENY,) 4 mg 00 SEE-INSTRU Med ical tablets CTIONS. Branch follow package directions methylPREDN Yes 84mg Take 21 Uni vers ISolone 1-26 Tabs by ity of (MEDROL, 00:00: mouth [place] ZENY,) 4 mg 00 SEE-INSTRU Med ical tablets CTIONS. Branch follow package directions methylPREDN Yes 84mg Take 21 Uni vers ISolone 1-26 Tabs by ity of (MEDROL, 00:00: mouth [place] ZENY,) 4 mg 00 SEE-INSTRU Med ical tablets CTIONS. Branch follow package directions methylPREDN Yes 84mg Take 21 Uni vers ISolone 1-26 Tabs by ity of (MEDROL, 00:00: mouth [place] ZENY,) 4 mg 00 SEE-INSTRU Med ical tablets CTIONS. Branch follow package directions traMADOL Yes Univers (ULTRAM) 50 1-24 ity of mg tablet 00:00: [place] [facility] traMADOL Yes Univers (ULTRAM) 50 1-24 ity of mg tablet 00:00: [place] [facility] traMADOL 0 Yes Univers (ULTRAM) 50 1-24 ity of mg tablet 00:00: [place] [facility] traMADOL 0 Yes Univers (ULTRAM) 50 1-24 ity of mg tablet 00:00: [place] [facility] traMADOL 0 Yes Univers (ULTRAM) 50 1-24 ity of mg tablet 00:00: [place] [facility] zolpidem Yes Univers (AMBIEN CR) 1-17 ity of 12.5 mg CR 00:00: [place] tablet 00 [facility] zolpidem 0 Yes Univers (AMBIEN CR) 1-17 ity of 12.5 mg CR 00:00: [place] tablet 00 Medical [place] zolpidem 0 Yes Univers (AMBIEN CR) 1-17 ity of 12.5 mg CR 00:00: [place] tablet 00 [facility] zolpidem 0 Yes Univers (AMBIEN CR) 1-17 ity of 12.5 mg CR 00:00: [place] tablet 00 [facility] zolpidem 0 Yes Univers (AMBIEN CR) 1-17 ity of 12.5 mg CR 00:00: [place] tablet 00 Medical Branch gabapentin Yes Univers (NEURONTIN) 1-12 ity of 600 mg 00:00: [place] tablet 00 Medical Branch gabapentin Yes Univers (NEURONTIN) 1-12 ity of 600 mg 00:00: [place] tablet 00 Medical Branch gabapentin Yes Univers (NEURONTIN) 1-12 ity of 600 mg 00:00: [place] tablet 00 Medical Branch gabapentin Yes Univers (NEURONTIN) 1-12 ity of 600 mg 00:00: [place] tablet Medical Branch gabapentin Yes Univers (NEURONTIN) 1-12 ity of 600 mg 00:00: [place] tablet 00 Medical Branch lisinopril- 2014-11 Yes Univer s hydrochloro 2-15 ity of thiazide 00:00: [place] ([facility], Medical [facility] Branch 20-25 mg per tablet lisinopril- 2014-11 Yes Univer s hydrochloro 2-15 ity of thiazide 00:00: [place] ([facility] Medical [facility] Branch 20-25 mg per tablet lisinopril- 2014-11 Yes Univer s hydrochloro 2-15 ity of thiazide 00:00: [place] ([facility] Medical [facility] Branch 20-25 mg per tablet lisinopril- 2014-11 Yes Univer s hydrochloro 2-15 ity of thiazide 00:00: [place] ([facility] Medical [facility] Branch 20-25 mg per tablet lisinopril- 2014-11 Yes Univer s hydrochloro 2-15 ity of thiazide 00:00: [place] ([place] [id number] Medical [facility]) Branch 20-25 mg per tablet Mirtazapine Mirtazapine Yes [place] 1 tablet Common at bedtime [facility] Losartan Losartan Yes [place] 1 tablet Common Potassium-H Potassium-H S [facility] CTZ CTZ [facility] Esomeprazol Esomeprazol Yes Na [place] 1 capsule Common e Magnesium e Magnesium S [facility] Gabapentin Gabapentin Yes [place] 1 tablet Common [facility] Atenolol Atenolol Yes [place] 1 tablet Common [facility] Mirtazapine Mirtazapine No Mirtazapin 15 MG 15 MG e 15 MG Sertraline Sertraline No Sertraline HCl 50 MG HCl 50 MG HCl 50 MG Esomeprazol Esomeprazol No Esomeprazo e Magnesium e Magnesium le 40 MG 40 MG Magnesium 40 MG amLODIPine amLODIPine No amLODIPine Besylate 5 Besylate 5 Besylate 5 MG MG MG Gabapentin Gabapentin No Gabapentin 600 MG 600 MG 600 MG Atenolol 25 Atenolol 25 No Atenolol MG MG 25 MG Losartan Losartan No Losartan Potassium-H Potassium-H Potassium- CTZ CTZ HCTZ 100-12.5 MG 100-12.5 MG 100-12.5 MG Sertraline Sertraline No Sertraline HCl 50 MG HCl 50 MG HCl 50 MG Mirtazapine Mirtazapine No Mirtazapin 15 MG 15 MG e 15 MG Esomeprazol Esomeprazol No Esomeprazo e Magnesium e Magnesium le 40 MG 40 MG Magnesium 40 MG Atenolol 25 Atenolol 25 No Atenolol MG MG 25 MG Gabapentin Gabapentin No Gabapentin 600 MG 600 MG 600 MG Losartan Losartan No Losartan Potassium-H Potassium-H Potassium- CTZ CTZ HCTZ 100-12.5 MG 100-12.5 MG 100-12.5 MG amLODIPine amLODIPine No amLODIPine Besylate 5 Besylate 5 Besylate 5 MG MG MG Sertraline Sertraline No Sertraline HCl 50 MG HCl 50 MG HCl 50 MG Mirtazapine Mirtazapine No Mirtazapin 15 MG 15 MG e 15 MG Esomeprazol Esomeprazol No Esomeprazo e Magnesium e Magnesium le 40 MG 40 MG Magnesium 40 MG Atenolol 25 Atenolol 25 No Atenolol MG MG 25 MG Gabapentin Gabapentin No Gabapentin 600 MG 600 MG 600 MG Losartan Losartan No Losartan Potassium-H Potassium-H Potassium- CTZ CTZ HCTZ 100-12.5 MG 100-12.5 MG 100-12.5 MG amLODIPine amLODIPine No amLODIPine Besylate 5 Besylate 5 Besylate 5 MG MG MG Sertraline Sertraline No Sertraline HCl 50 MG HCl 50 MG HCl 50 MG Mirtazapine Mirtazapine No Mirtazapin 15 MG 15 MG e 15 MG Esomeprazol Esomeprazol No Esomeprazo e Magnesium e Magnesium le 40 MG 40 MG Magnesium 40 MG Atenolol 25 Atenolol 25 No Atenolol MG MG 25 MG Gabapentin Gabapentin No Gabapentin 600 MG 600 MG 600 MG Losartan Losartan No Losartan Potassium-H Potassium-H Potassium- CTZ CTZ HCTZ 100-12.5 MG 100-12.5 MG 100-12.5 MG amLODIPine amLODIPine No amLODIPine Besylate 5 Besylate 5 Besylate 5 MG MG MG Sertraline Sertraline No Sertraline HCl 50 MG HCl 50 MG HCl 50 MG Mirtazapine Mirtazapine No Mirtazapin 15 MG 15 MG e 15 MG Esomeprazol Esomeprazol No Esomeprazo e Magnesium e Magnesium le 40 MG 40 MG Magnesium 40 MG Atenolol 25 Atenolol 25 No Atenolol MG MG 25 MG Gabapentin Gabapentin No Gabapentin 600 MG 600 MG 600 MG Losartan Losartan No Losartan Potassium-H Potassium-H Potassium- CTZ CTZ HCTZ 100-12.5 MG 100-12.5 MG 100-12.5 MG amLODIPine amLODIPine No amLODIPine Besylate 5 Besylate 5 Besylate 5 MG MG MG amLODIPine amLODIPine No amLODIPine Besylate 5 Besylate 5 Besylate 5 MG MG MG Gabapentin Gabapentin No Gabapentin 600 MG 600 MG 600 MG Esomeprazol Esomeprazol No Esomeprazo e Magnesium e Magnesium le 40 MG 40 MG Magnesium 40 MG Sertraline Sertraline No Sertraline HCl 50 MG HCl 50 MG HCl 50 MG Mirtazapine Mirtazapine No Mirtazapin 15 MG 15 MG e 15 MG Atenolol 25 Atenolol 25 No Atenolol MG MG 25 MG Losartan Losartan No Losartan Potassium-H Potassium-H Potassium- CTZ CTZ HCTZ 100-12.5 MG 100-12.5 MG 100-12.5 MG Mirtazapine Mirtazapine No Mirtazapin 15 MG 15 MG e 15 MG amLODIPine amLODIPine No amLODIPine Besylate 5 Besylate 5 Besylate 5 MG MG MG Sertraline Sertraline No Sertraline HCl 50 MG HCl 50 MG HCl 50 MG Gabapentin Gabapentin No Gabapentin 600 MG 600 MG 600 MG Losartan Losartan No Losartan Potassium-H Potassium-H Potassium- CTZ CTZ HCTZ 100-12.5 MG 100-12.5 MG 100-12.5 MG Atenolol 25 Atenolol 25 No Atenolol MG MG 25 MG Mirtazapine Mirtazapine No Mirtazapin 15 MG 15 MG e 15 MG amLODIPine amLODIPine No amLODIPine Besylate 5 Besylate 5 Besylate 5 MG MG MG Sertraline Sertraline No Sertraline HCl 50 MG HCl 50 MG HCl 50 MG Gabapentin Gabapentin No Gabapentin 600 MG 600 MG 600 MG Losartan Losartan No Losartan Potassium-H Potassium-H Potassium- CTZ CTZ HCTZ 100-12.5 MG 100-12.5 MG 100-12.5 MG Atenolol 25 Atenolol 25 No Atenolol MG MG 25 MG Gabapentin Gabapentin No Gabapentin 600 MG 600 MG 600 MG Sertraline Sertraline No Sertraline HCl 50 MG HCl 50 MG HCl 50 MG Atenolol 25 Atenolol 25 No 1{table QD Atenolol MG MG t} 25 MG amLODIPine amLODIPine No 1{table amLODIPine Besylate 5 Besylate 5 t} Besylate 5 MG MG MG Atenolol 25 Atenolol 25 No Atenolol MG MG 25 MG Mirtazapine Mirtazapine No Mirtazapin 15 MG 15 MG e 15 MG Losartan Losartan No Losartan Potassium-H Potassium-H Potassium- CTZ CTZ HCTZ 100-12.5 MG 100-12.5 MG 100-12.5 MG Losartan Losartan No 1{table QD Losartan Potassium-H Potassium-H t} Potassium- CTZ 100-25 CTZ 100-25 HCTZ MG MG 100-25 MG amLODIPine amLODIPine No amLODIPine Besylate 5 Besylate 5 Besylate 5 MG MG MG tiZANidine tiZANidine No QD tiZANidine HCl 2 MG HCl 2 MG HCl 2 MG Mirtazapine Mirtazapine No 1{table QD Mirtazapin 15 MG 15 MG t_at_be e 15 MG dtime} Gabapentin Gabapentin No 1{table QD Gabapentin 600 MG 600 MG t} 600 MG Mirtazapine Mirtazapine No 1{table QD Mirtazapin 15 MG 15 MG t_at_be e 15 MG dtime} tiZANidine tiZANidine No QD tiZANidine HCl 2 MG HCl 2 MG HCl 2 MG Sertraline Sertraline No Sertraline HCl 50 MG HCl 50 MG HCl 50 MG Mirtazapine Mirtazapine No Mirtazapin 15 MG 15 MG e 15 MG Losartan Losartan No 1{table QD Losartan Potassium-H Potassium-H t} Potassium- CTZ 100-25 CTZ 100-25 HCTZ MG MG 100-25 MG Atenolol 25 Atenolol 25 No Atenolol MG MG 25 MG Gabapentin Gabapentin No 1{table QD Gabapentin 600 MG 600 MG t} 600 MG Gabapentin Gabapentin No Gabapentin 600 MG 600 MG 600 MG amLODIPine amLODIPine No amLODIPine Besylate 5 Besylate 5 Besylate 5 MG MG MG Losartan Losartan No Losartan Potassium-H Potassium-H Potassium- CTZ CTZ HCTZ 100-12.5 MG 100-12.5 MG 100-12.5 MG Esomeprazol Esomeprazol No Esomeprazo e Magnesium e Magnesium le 40 MG 40 MG Magnesium 40 MG Gabapentin Gabapentin No Gabapentin 600 MG 600 MG 600 MG Gabapentin Gabapentin No 1{table QD Gabapentin 600 MG 600 MG t} 600 MG Mirtazapine Mirtazapine No Mirtazapin 15 MG 15 MG e 15 MG Atenolol 25 Atenolol 25 No Atenolol MG MG 25 MG amLODIPine amLODIPine No amLODIPine Besylate 5 Besylate 5 Besylate 5 MG MG MG Sertraline Sertraline No Sertraline HCl 50 MG HCl 50 MG HCl 50 MG Mirtazapine Mirtazapine No Mirtazapin 15 MG 15 MG e 15 MG Sertraline Sertraline No Sertraline HCl 50 MG HCl 50 MG HCl 50 MG Esomeprazol Esomeprazol No Esomeprazo e Magnesium e Magnesium le 40 MG 40 MG Magnesium 40 MG amLODIPine amLODIPine No amLODIPine Besylate 5 Besylate 5 Besylate 5 MG MG MG Gabapentin Gabapentin No Gabapentin 600 MG 600 MG 600 MG Atenolol 25 Atenolol 25 No Atenolol MG MG 25 MG Losartan Losartan No Losartan Potassium-H Potassium-H Potassium- CTZ CTZ HCTZ 100-12.5 MG 100-12.5 MG 100-12.5 MG Mirtazapine Mirtazapine No Mirtazapin 15 MG 15 MG e 15 MG Sertraline Sertraline No Sertraline HCl 50 MG HCl 50 MG HCl 50 MG Esomeprazol Esomeprazol No Esomeprazo e Magnesium e Magnesium le 40 MG 40 MG Magnesium 40 MG amLODIPine amLODIPine No amLODIPine Besylate 5 Besylate 5 Besylate 5 MG MG MG Gabapentin Gabapentin No Gabapentin 600 MG 600 MG 600 MG Atenolol 25 Atenolol 25 No Atenolol MG MG 25 MG Losartan Losartan No Losartan Potassium-H Potassium-H Potassium- CTZ CTZ HCTZ 100-12.5 MG 100-12.5 MG 100-12.5 MG Vital Signs Vital Name Observation Time Observation Value Comments Source height 2022-10-08 10:40:00 64.00 [in_i] [facility] weight 2022-10-08 10:40:00 211.4 [lb_av] [facility] temperature 2022-10-08 10:40:00 97.3 [degF] [facility] bmi 2022-10-08 10:40:00 36.28 kg/m2 [facility] oximetry 2022-10-08 10:40:00 97 % [facility] respiratory rate 2022-10-08 10:40:00 15 /min Comm on [facility] blood pressure 2022-10-08 10:40:00 126 mm[Hg] [facility] systolic [facility] blood pressure 2022-10-08 10:40:00 60 mm[Hg] [facility] diastolic [facility] height 2022-01-22 15:00:00 64.00 [in_i] [facility] weight 2022-01-22 15:00:00 208.8 [lb_av] [facility] temperature 2022-01-22 15:00:00 97.9 [degF] [facility] bmi 2022-01-22 15:00:00 35.84 kg/m2 [facility] oximetry 2022-01-22 15:00:00 98 % [facility] respiratory rate 2022-01-22 15:00:00 18 /min Comm on [facility] blood pressure 2022-01-22 15:00:00 134 mm[Hg] [facility] blood pressure 2022-01-22 15:00:00 62 mm[Hg] [facility] - diastolic [facility] height 2022-01-22 14:40:00 64.00 [in_i] [facility] weight 2022-01-22 14:40:00 208.8 [lb_av] Common [facility] - [facility] temperature 2022-01-22 14:40:00 97.9 [degF] [facility] bmi 2022-01-22 14:40:00 35.84 kg/m2 [facility] oximetry 2022-01-22 14:40:00 98 % [facility] blood pressure 2022-01-22 14:40:00 134 mm[Hg] Common [facility] - systolic [facility] blood pressure 2022-01-22 14:40:00 62 mm[Hg] Common [facility] - diastolic [facility] Systolic blood 2020-11-08 14:25:00 134 mm[Hg] [facility] Diastolic blood 2020-11-08 14:25:00 60 mm[Hg] Unive rsity [facility] Heart rate 2020-11-08 14:25:00 56 /min [facility] Respiratory rate 2020-11-08 14:25:00 18 /min [facility] Oxygen saturation in 2020-11-08 14:25:00 99 /min [facility] Arterial blood by [facility] Pulse oximetry Branch Body temperature 2020-11-08 14:12:00 36.11 [facility] Body height 2020-10-27 17:58:[address] [facility] Body weight 2020-10-27 17:58:[address] [facility] BMI 2020-10-27 17:58:00 38.36 kg/m2 [facility] Systolic blood 2020-11-08 14:25:00 134 mm[Hg] Univer sity [facility] Diastolic blood 2020-11-08 14:25:00 60 mm[Hg] [facility] Heart rate 2020-11-08 14:25:00 56 /min [facility] Respiratory rate 2020-11-08 14:25:00 18 /min [facility] Oxygen saturation in 2020-11-08 14:25:00 99 /min [facility] Arterial blood by [facility] Pulse oximetry Branch Body temperature 2020-11-08 14:12:00 36.11 [facility] Body height 2020-10-27 17:58:00 161.3 cm [facility] Body weight 2020-10-27 17:58:00 99.8 kg [facility] BMI 2020-10-27 17:58:00 38.36 kg/m2 [facility] Body height 2020-08-25 15:53:00 161.3 cm [facility] Body weight 2020-08-25 15:53:00 99.791 kg [facility] BMI 2020-08-25 15:53:00 38.36 kg/m2 [facility] Body height 2020-08-25 15:53:00 161.3 cm [facility] Body weight 2020-08-25 15:53:00 99.791 kg [facility] BMI 2020-08-25 15:53:00 38.36 kg/m2 Univers[facility] ty [facility] Procedures Procedure Date / Time Performing Clinician Source Performed COLONOSCOPY (ENDO) 2020-11-08 13:01:22 Ángel Melendez [facility] ASSIGNMENT OF BENEFITS 2020-11-07 19:01:47 Doctor Unassigned, No [facility] DSU PRE-OP 2020-10-23 06:01:00 Doctor Unassigned, No Mikel [facility] Encounters Start End Encounter Admission Attending Care Care Encounter Source Date/Time Date/Time Type Type Clinicians Facility Department ID 2023-06-17 Outpatient BRYCE Hong [facility] [id number] Common 10:41:00 [facility] [id number] [place] [address] 2023-04-21 Outpatient Hong, STLMLC STLMLC [id number] Common 11:56:01 [facility] [address]77[address] [facility] 2023-04-18 Outpatient Hong, STLMLC STLMLC [id number] Common 09:55:01 [facility] 88940 [facility] 2023-04-02 Outpatient Hong, STLMLC STLMLC [id number] Common 10:51:00 [facility] 23916 [facility] 2023-01-30 Outpatient Genie, STLMLC STLMLC [id number] Common 08:31:01 Lila 11236 [facility] 2022-07-05 Outpatient Yan, Na STLMLC STLMLC [id number] Common 09:45:01 [facility] 2022-01-18 Outpatient Yan, Na STLMLC STLMLC [id number] Common 10:28:00 [facility] 2021-12-12 Outpatient Yan, Na STLMLC STLMLC [id number] Common 13:35:26 [facility] 2021-12-12 Outpatient Yan, Na STLMLC STLMLC [id number] Common 13:34:11 [facility] 2021-12-12 Outpatient Yan, Na STLMLC STLMLC [id number] Common 12:53:07 [id number] [facility] 2021-12-12 Outpatient Yan, Na STLMLC STLMLC [id number] 2 Common 12:52:33 [id number] [facility] 2021-12-12 Outpatient Yan, Na STLMLC STLMLC [id number] 2 Common 11:37:47 [id number] [facility] 2021-12-12 Outpatient Yan, Na STLMLC STLMLC [id number] 2 Common 11:19:51 [id number] [facility] 2021-12-12 Outpatient Yan, Na STLMLC STLMLC [id number] 2 Common 11:19:34 62769 [facility] 2021-09-15 Outpatient [facility] [id number] Univers 11:03:38 ALESHIA Villarreal [facility] 2023-04-22 2023-04-22 Outpatient Andrew Yu HCAPM ADEBAYO LA0 [id number] [facility] 09:26:00 09:26:00 83 [facility] 2022-10-08 2022-10-08 OFFICE STLMLC STLMLC [id number] Co mmon 00:00:00 00:00:00 VISIT EST Spir it PT LEVEL 3 - [facility] 2022-07-16 2022-07-16 Outpatient LINDY [facility] [id number] [address] [place] 00:00:00 00:00:00 EUGENE [address] 2022-07-16 2022-07-16 Outpatient LINDY [facility] [id number] [place] 00:00:00 00:00:00 EUGENE [address] 2022-07-09 2022-07-09 OFFICE STLMLC STLMLC [id number] Co mmon 00:00:00 00:00:00 VISIT EST Spir it PT LEVEL 3 - [facility] 2022-06-17 2022-06-17 (TEL) STLMLC STLMLC [id number] Co mmon 00:00:00 00:00:00 [facility] 2022-06-04 2022-06-04 (TEL) STLMLC STLMLC [id number] Co mmon 00:00:00 00:00:00 [facility] 2022-06-03 2022-06-03 (TEL) STLMLC STLMLC [id number] Co mmon 00:00:00 00:00:00 [facility] 2022-05-27 2022-05-27 (TEL) STLMLC STLMLC [id number] Co mmon 00:00:00 00:00:00 [facility] 2022-05-24 2022-05-24 (TEL) STLMLC STLMLC [id number] Co mmon 00:00:00 00:00:00 [facility] 2022-05-24 2022-05-24 (TEL) STLMLC STLMLC [id number] Co mmon 00:00:00 00:00:00 [facility] 2022-05-24 2022-05-24 OFFICE STLMLC STLMLC [id number] Co mmon 00:00:00 00:00:00 VISIT EST Spir it PT LEVEL 3 - [facility] 2022-01-23 2022-01-23 (TEL) STLMLC STLMLC [id number] Co mmon 00:00:00 00:00:00 [facility] 2022-01-22 2022-01-22 SUB ANNUAL STLMLC STLMLC [id number] Common 00:00:00 00:00:00 MCR [facility] - [facility] VISIT [facility] 2022-01-22 2022-01-22 OFFICE STLMLC STLMLC [id number] Co mmon 00:00:00 00:00:00 VISIT EST Spir it PT LEVEL 3 - [facility] 2021-12-10 2021-12-10 (TEL) STLMLC STLMLC [id number] Co mmon 00:00:00 00:00:00 [facility] 2021-11-14 2021-11-14 Outpatient Karlee [facility] [id number] [facility] 15:30:00 15:30:00 ILIA coelho [facility] 2021-09-06 2021-09-07 Inpatient EM Marline, HCACL KYLE [id number] [facility] 18:43:00 15:24:00 Gucci 85 Cl [facility] 2021-07-03 2021-07-03 [facility] [id number] [address] [place] 00:00:00 00:00:00 EUGENE [address] 2021-06-22 2021-06-22 Outpatient STLMLC STLMLC [id number] Common 00:00:00 00:00:00 [facility] 2021-05-29 2021-05-29 [facility] [id number] [address] [place] 00:00:00 00:00:00 EUGENE [address] 2021-05-08 2021-05-08 [facility] [id number] [address] [place] 00:00:00 00:00:00 EUGENE [address] 2021-04-25 2021-04-25 Outpatient [facility] [id number] [address] [place] 00:00:00 00:00:[address] 2021-04-13 2021-04-17 Inpatient KADEN, [facility] [id number] [place] 00:00:00 00:00:00 XOCHILT [address] 2021-04-12 2021-04-12 Outpatient [facility] [id number] [place] 00:00:00 00:00:[address] 2021-04-12 2021-04-12 Outpatient [facility] [id number] [address] [place] 00:00:00 00:00:[address] 2021-03-29 2021-03-29 Outpatient [facility] [id number] [address] [place] 00:00:00 00:00:[address] 2021-03-12 2021-03-13 Outpatient LINDY, [facility] [id number] [place] 00:00:00 00:00:00 EUGENE [address] 2021-03-07 2021-03-07 Outpatient LINDY, [facility] [id number] [place] 00:00:00 00:00:00 EUGENE [address] 2021-03-02 2021-03-02 Outpatient STLMLC STLMLC [id number] Common 00:00:00 00:00:00 [facility] 2021-02-06 2021-02-06 Outpatient LINDY, [facility] [id number] [address] [place] 00:00:00 00:00:00 EUGENE [address] 2021-02-06 2021-02-06 Outpatient LINDY, [facility] [id number] [address] [place] 00:00:00 00:00:00 EUGENE [address] 2021-02-02 2021-02-02 Outpatient STLMLC STLMLC [id number] Common 00:00:00 00:00:00 [facility] 2020-11-18 2020-11-18 Outpatient STLMLC STLMLC [id number] Common 00:00:00 00:00:00 [facility] 2020-11-08 2020-11-08 [facility] [id number] Univers 06:53:00 08:36:00 Encounter Aleshia villarreal 350.1.13.10 [place] [id number] [address] 2020-11-08 2020-11-08 [facility] [id number] 06:53:00 08:36:00 Encounter Aleshia villarreal [place] [id number] [place] 4.2.7.2.686 Surgical [id number] [place] [id number] 2020-11-07 2020-11-07 Laboratory Only, [facility] Test [facility] 1.2.840. 114 [id number] [facility] 13:00:29 13:15:29 Only Aleshia Ngo 350.1.1 3.10 [place] [id number] [address] 2020-11-07 2020-11-07 Laboratory Only, [facility] 1.2.840.114 [id number] 13:00:29 13:15:29 Only Test [place] 350.1.13.10 [place] 4.2.7.2.686 [place] [id number] [facility] 2020-11-07 2020-11-07 Outpatient R [facility] [id number] Univers 13:15:00 13:15:00 ALESHIA Villarreal o [facility] 2020-11-07 2020-11-07 Orders Doctor VIVAS [id number] [facility] 00:00:00 00:00:00 Only Unassigned, ZA 350.1.13.10 ity of [facility] 4.2.7.2.686 [place] as [id number] [address] 2020-11-07 2020-11-07 Orders Doctor VIVAS 1.2.840.114 [id number] 00:00:00 00:00:00 Only Unassigned, ZA 350.1.13.10 [facility] 4.2.7.2.686 [id number] 009 2020-10-28 2020-10-28 Outpatient STLMLC STLMLC [id number] Common 00:00:00 00:00:00 [facility] 2020-08-28 2020-08-28 Outpatient FAITH, [facility] [id number] [address] [place] 00:00:00 00:00:00 GITA Fu Method i 2020-08-28 2020-08-28 Outpatient ANISHA [facility] [id number] [address] [place] [address] 00:00:00 00:00:00 DAYANAMED 165 Method i 2020-08-25 2020-08-25 [facility] [id number] Univers 10:46:34 11:05:51 Visit [facility] 350.1.13.10 it y of Surgical 4.2.7.2.686 Gavin as Specialti [id number] Il dical es 198 [facility] 2020-08-25 2020-08-25 [facility] [id number] 10:46:34 11:05:51 Visit [facility] 350.1.13.10 Surgical 4.2.7.2.686 Specialti [id number] es 198 [place] 2020-08-25 2020-08-25 [facility] [id number] Univers 10:45:00 10:45:00 [facility] 2020-08-25 2020-08-25 Outpatient STLMLC STLMLC [id number] Common 00:00:00 00:00:00 [facility] 2020-07-02 2020-07-02 Out[facility] [id number] Common 13:30:00 13:30:[address] [facility] 2020-06-30 2020-06-30 Outpatient [facility] [id number] Common 10:00:00 10:00:[address] [facility] 2020-06-30 2020-06-30 [facility] [id number] Common 08:32:00 08:32:[address] [facility] 2020-03-17 2020-03-17 Outpatient Cristi Murphy [id number] Common 15:52:00 15:52:[address] [facility] 2020-03-16 2020-03-16 Outpatient Cristi Murphy [id number] Common 11:00:00 11:00:[address] [facility] 2020-02-15 2020-02-15 Outpatient Cristi Murphy [id number] Common 10:00:00 10:00:[address] [facility] Results Test Description Test Time Test Comments Results Result Comments Source BASIC METABOLIC PANEL 2021-09-07 07:32:00 Test Item Value Reference Range Interpretation Comme nts SODIUM (test code = NA) 140 mEq/L 134-147 N POTASSIUM (test code = K) 4.0 mEq/L 3.4-5.0 N CHLORIDE (test code = CL) 105 mEq/L 100-108 N CARBON DIOXIDE (test code = CO2) 26 mEq/l 21-33 N ANION GAP (test code = GAP) 13 0-20 N GLUCOSE (test code = GLU) 89 mg/dL 70-110 N BLOOD UREA NITROGEN (test code = 30 mg/dL 7-18 H BUN) GLOMERULAR FILTRATION RATE (test 32.1 80-90 L Units of measure = ml/min/1.73 code = GFR) m2 CREATININE (test code = CREAT) 1.6 mg/dL 0.6-1.3 H CALCIUM (test code = CA) 9.1 mg/dL 8.0-10.5 N CBC W/AUTO [id number] 07:05:00 Test Item Value Reference Range Interpretation Comments WHITE BLOOD CELL (test code = 8.5 x10 3/uL 4.5-11.0 N WBC) RED BLOOD CELL (test code = 3.59 x10 6/uL 3.54-5.02 N RBC) HEMOGLOBIN (test code = HGB) 10.2 g/dL 11.0-15.0 L HEMATOCRIT (test code = HCT) 32.8 % 33.0-45.0 L MEAN CELL VOLUME (test code = 91.4 fL 81.0-99.0 N MCV) MEAN CELL HGB (test code = MCH) 28.4 pg 27.0-33.0 N MEAN CELL HGB CONCETRATION 31.1 g/dL 33.0-37.0 L (test code = MCHC) RED CELL DISTRIBUTION WIDTH CV 13.5 % 11.5-14.5 N (test code = RDW) RED CELL DISTRIBUTION WIDTH SD 45.9 fL 37.0-54.0 N (test code = RDW-SD) PLATELET COUNT (test code = 233 x10 3/uL 150-400 N PLT) MEAN PLATELET VOLUME (test code 10.8 fL 7.0-9.0 H = MPV) NEUTROPHIL % (test code = NT%) 72.9 % 56.0-77.0 N IMMATURE GRANULOCYTE % (test 0.5 % 0.0-2.0 N code = IG%) LYMPHOCYTE % (test code = LY%) 11.0 % 14.0-32.0 L MONOCYTE % (test code = MO%) 14.6 % 4.8-9.0 H EOSINOPHIL % (test code = EO%) 0.5 % 0.3-3.7 N BASOPHIL % (test code = BA%) 0.5 % 0.0-2.0 N NUCLEATED RBC % (test code = 0.0 % 0-0 N NRBC%) NEUTROPHIL # (test code = NT#) 6.22 x10 3/uL 2.0-7.6 N IMMATURE GRANULOCYTE # (test 0.04 x10 3/uL 0.00-0.03 H code = IG#) LYMPHOCYTE # (test code = LY#) 0.94 x10 3/uL 1.0-3.8 L MONOCYTE # (test code = MO#) 1.24 x10 3/uL 0.1-0.8 H EOSINOPHIL # (test code = EO#) 0.04 x10 3/uL 0.0-0.2 N BASOPHIL # (test code = BA#) 0.04 x10 3/uL 0.0-0.2 N NUCLEATED RBC # (test code = 0.00 x10 3/uL 0.0-0.1 N NRBC#) MANUAL DIFF REQUIRED (test code NO = MDIFF) - XR CHEST 1 [id number] 00:00:00 [facility] DANE MORRISName: ROSMERY SALVADOR : 1955 Sex: F FAX: Gucci Horan [phone] [place]: St: ADM FAX: Raman Bazzi [phone] - Name: HAYDEN SALVADOR [facility] : 1955 Age/S: 66/F [address] [place] [address] Unit #: [id number] Loc: G.5532 [place] [address] Phys: Raman Claire MD Acct: [id number] Dis Date: Status: ADM IN PHONE #: [phone] Exam Date: 09/07/2021 1028 FAX #: [phone] Reason: REQUIRED FOR A VQ SCAN EXAMS: CPT CODE: [id number] XR CHEST 1 V [id number] PROCEDURE INFORMATION: Exam: XR Chest Exam date and time: 09/07/2021 8:59 AM Age: 66 years old Clinical indication: Screening exam; Other screening; Additional info: Required for a vq scan TECHNIQUE: Imaging protocol: XR of the chest. Views: 1 view. COMPARISON: No relevant prior studies available. FINDINGS: Lungs: Mild decreased lung volumes. No consolidation. Pleural spaces: No pleural effusion. No pneumothorax. Heart/Mediastinum: Borderline cardiomegaly. Bones/joints: No acute abnormality. IMPRESSION: Hypoinflated lungs. No acute cardiopulmonary process. at 1107 Reported and signed by: Eugene Rene M.D. CC: Gucci Horan DO; Raman Claire MD Technologist: RT Bonifacio(Karlee) Trnscrd Date/Time/By: 09/07/2021 (110) : By: [email or web address] Orig Print D/T: S: 09/07/2021 (2676) PAGE 1 Signed Report- NM LUNG PERF [id number] 00:00:00 [facility] : 1955 Sex: F FAX: Chandu Hill NP [phone] [place]: St: [facility] FAX: Kaiden Luciano MD [phone] ---- Name: ROSMERY SALVADOR SHREYAS [facility] : 1955 Age/S: 66/F [address] [place] [address] Unit #: [id number] Loc: [id number] [address] Phys: Chandu Hill NP Acct: [id number] Dis Date: Status: ADM IN PHONE #: [phone] Exam Date: 09/07/2021 1037 FAX #: [phone] Reason: elevated d-dimer, low GFR due to CKD EXAMS: CPT CODE: [id number] NM LUNG PERF PARTICULATE [id number] PROCEDURE INFORMATION: Exam: NM Lung Perfusion Exam date and time: 09/07/2021 10:38 AM Age: 66 years old Clinical indication: Shortness of breath; Abnormal coagulation profile; Additional info: Elevated d-dimer, low gfr due to ckd; () TECHNIQUE:Imaging protocol: Nuclear pulmonary perfusion imaging was performed. Views: Perfusion acquired with multiple projections. Radiopharmaceutical: 5 mCi Tc-99m MAA (Macroaggregated Albumin), IV. COMPARISON: CR XR CHEST 1V 09/07/2021 8:59 AM FINDINGS: Perfusion: No significant perfusion defect. IMPRESSION:Low probability for pulmonary embolism. Normal: < 5% probability of pulmonary embolism. Low likelihood ratio: < 20 % probability of pulmonary embolism. Intermediate likelihood ratio: 20-80% probability of pulmonary embolism. High likelihood ratio: > 80% probability of pulmonary embolism. at 1049 Reported and signed by: Pawel Srivastava M.D.CC: Chandu Hill NP; Kaiden Way MD Technologist: RT Cirilo(Karlee)([facility]); ... Trnscrd Date/Time/By: 09/07/2021 (1462) : By: JeanneTTV Orig Print D/T: S: 09/07/2021 (8434) PAGE 1 Signed ReportBASIC METABOLIC PANEL 2021-09-06 20:42:00 Test Item Value Reference Range Interpretation Comments SODIUM (test code = NA) 138 mEq/L 134-147 N POTASSIUM (test code = 4.1 mEq/L 3.4-5.0 N K) CHLORIDE (test code = 103 mEq/L 100-108 N CL) CARBON DIOXIDE (test 25 mEq/l 21-33 N code = CO2) ANION GAP (test code = 15 0-20 N GAP) GLUCOSE (test code = 100 mg/dL 70-110 N GLU) BLOOD UREA NITROGEN 30 mg/dL 7-18 H (test code = BUN) GLOMERULAR FILTRATION 29.9 80-90 L Units of measure = RATE (test code = GFR) ml/mi n/1.73 m2 CREATININE (test code = 1.7 mg/dL 0.6-1.3 H CREAT) CALCIUM (test code = 9.2 mg/dL 8.0-10.5 N CA) SARS-CoV-2 (COVID-19) RNA [Presence] in Respiratory specimen by JANESSA with probe [id number] 06:25:07 Test Item Value Reference Range Interpretation Comments SARS-CoV-2 (COVID-19) RNA Not detected Not-Detected [Presence] in Respiratory specimen by JANESSA with probe detection (test code = 18896-7) Whether patient is employed in a healthcare setting (test code = 40027-1) Whether the patient has symptoms related to condition of interest (test code = 91282-3) Patient was hospitalized because of this condition (test code = 52137-1) Whether the patient was admitted to intensive care unit (ICU) for condition of interest (test code = 88910-7) Whether patient resides in a congregate care setting (test code = 21996-3) ARNOLD THOMPSONSARS-CoV-2 (COVID-19) RNA [Presence] in Respiratory specimen by JANESSA with probe [id number] 01:27:36 Test Item Value Reference Range Interpretation Comments SARS-CoV-2 (COVID-19) RNA Not detected Not-Detected [Presence] in Respiratory specimen by JANESSA with probe detection (test code = 03110-1) Whether patient is employed in a healthcare setting (test code = 33571-0) Whether the patient has symptoms related to condition of interest (test code = 06796-1) Patient was hospitalized because of this condition (test code = 69014-1) Whether the patient was admitted to intensive care unit (ICU) for condition of interest (test code = 93333-8) Whether patient resides in a congregate care setting (test code = 48916-7) ARNLOD THOMPSONSARS-CoV-2 (COVID-19) RNA [Presence] in Respiratory specimen by JANESSA with probe [id number] 13:17:56 Test Item Value Reference Range Interpretation Comments SARS-CoV-2 (COVID-19) RNA Not detected Not-Detected [Presence] in Respiratory specimen by JANESSA with probe detection (test code = 42231-6) ARNOLD TRAN,[id number] 09:06:00 RUN DATE: 11/19/18 [facility] PAGE 1 RUN TIME: 1021 Specimen Inquiry RUN USER: INTERFACE -PATIENT: ROSMERY SALVADOR LOC: [facility] U #: [id number] AGE/SX: 63/F ROOM: RE11/18/18REG DR: Anrdew Raines III, MD : 51 BED: DIS: STATUS: PRE REF TLOC: SPEC #: [id number] RECD: 11/18/18 STATUS: STEPHANIE REQ #: [id number] ANI: 11/18/18- SUBM DR: Andrew Raines III, MD ENTERED: 11/18/18 SP TYPE: BREBAM PRITCHETT DR: Salud Becerril MD ORDERED: LEVEL IV CODES: G69117 - BREAST, NOS COPIES TO: Andrew Sam III, MD [address] [place] [address] [place] [address] [place] [address] PROCEDURES: LEVEL IV (Incomplete) TISSUES: BREAST, NOS - LEFT BREAST BIOPSY CLINICAL HISTORY 63 year old, indeterminant mass, 14g x 3, ? cyst/mass not seen post biopsy (wpd) NOTE: Left breast 12:00 mass (0.7 cm): Biopsy: 11/18/18 @ 1025 In formalin: 11/18/18 @ 1026 Out of formalin: 11/18/18 @ 1825 FINAL DIAGNOSIS LEFT breast 12:00, CNB: - mild usual ductal hyperplasia -columnar cell change with microcalcifications Tissue code 1 CPT code(s): 10599 cds/kr CONTINUED ON NEXT PAGE RUN DATE: 11/19/18 [facility] PAGE 2 RUN TIME: 1021 Specimen Inquiry RUN USER: INTERFACE SPEC#: [id number] PATIENT: ROSMERY SALVADOR SHREYAS #[id number] (Continued) GROSS DESCRIPTION ANATOMIC SOURCE OF TISSUE (per Requisition): Left breast 12:00 mass (0.7 cm) The specimen is received in a formalin-filled container, labeled with the patient's name and designated "left breast @ 12:00". The specimen consists of three off-white and yellow soft tissue cores ranging from 1.2 - 1.8 cm in length and is submitted in toto in one cassette. hz/wpd 11/18/18 @ 2731 MICROSCOPIC DESCRIPTION LEFT breast cores from 12:00 consists of benign breast parenchyma with columnar cell change with microcalcifications and foci of mild ductal hyperplasia without atypia. cristian/kirsty Signed Biju Del Rio 11/19/1806 END OF REPORT POC, COVID 19 Antigen + Flu by SofiaPOC, COVID 19 Antigen + Flu by Tika Notes Date/Time Note Provider Source 2021-09-06 21:29:00-00:00 [facility] ([facility]) Hospitalist History Physical REPORT#:[id number] REPORT STATUS: Signed DATE:09/06/21 TIME: 2128 PATIENT: ROSMERY SALVADOR SHREYAS UNIT #: [id number] [facility] AGE: 66 SEX: F ATTEND: Mary Horan DO ADM AUTHOR: Gucci Horan DO * ALL edits or amendments must be made on the el ectronic/computer document * History of Present Illness HPI Chief complaint: Shortness of breath PCP: PCP: Dr Yan HPI: 66-year-old female past medical history of hyper tension and stage III chronic kidney disease presents to ED as a trans barb from [place] emergency department in [place], where she initially presented katherine ier today with complaint of chills, shortness of breath, chest tightness, nonproductive cough for the past 3 days. In [place] patient lost test ed for COVID-19 and influenza, both of which were negative. Chest x-ray was negative fo r acute abnormalities. Additional lab studies included CBC, CMP and D-d tal. GFR was estimated at 33 and D-dimer was 1860. Patient was transferred he re to [facility] for V/Q scan. Patient reports that she has received the Moderna vaccine and is fully vaccinated against COVID-19. History Past Medical Surgical Hx Patient History: 1. CKD (chronic kidney disease) stage 3, GFR 30 -59 ml/min 2. HTN (hypertension) 3. Obese Additional surgical history: Gallbladder left knee replacement Family History Additional family history: Mother: breast cancer, stroke, COPD Social History Alcohol use: Denies EtOH use Drug use: Denies recreational drugs Smoking status: Smoking status for patients 13 years old or old er: Never Smoker Medication/Allergy-Vaccine Hx Medications: Home Medications: LOSARTAN/HCTZ (HYZAAR 100/25 MG) ATENOLOL (TENORMIN) 25 MG PO DAILY MIRTAZAPINE (REMERON) ONDANSETRON (ZOFRAN) CEFEPIME (MAXIPIME) HYDROcodone/APAP (NORCO 7.5/325) MINOCYCLINE (MINOCIN) SERTRALINE (ZOLOFT) 50 MG PO DAILY amLODIPine (NORVASC) DULoxetine (CYMBALTA) 40 MG PO Q 1800 ESOMEPRAZOLE MAG (NexIUM) 40 MG PO DAILY GABAPENTIN (NEURONTIN) 600 MG PO DAILY LISINOPRIL/HCTZ (ZESTORETIC 20/12.5 MG) 1 TAB PO QNOON PRAVASTATIN (PRAVACHOL) 40 MG PO QNOON ZOLPIDEM CR (AMBIEN CR) 6.25 MG PO BEDTIME HYDROcodone/APAP (NORCO 5/325) 1-2 TAB PO Q4H OK N PRN PAIN CEPHALEXIN (KEFLEX) 500 MG PO TID Allergies: Coded Allergies: codeine (Intermediate, NAUSEA 10/25/16) morphine (Intermediate, NAUSEA 10/25/16) Review of Systems Free Text ROS Notes Free Text ROS Notes: 14 point review of systems o btained, pertinent positives and negatives noted in HPI Physical Exam VS/I O: Vital Signs Date Temp Pulse Resp B/P B/P Mean Pulse Ox FiO 2 09/06 98.9-100.9 74-75 14-19 149-155/65-67 93-9 6 98-100 Last Documented: Result Date Time Pulse Ox 98 09/06 2320 B/P 149/65 09/06 2320 B/P Mean 93 09/06 2320 O2 Delivery Room air 09/06 2320 Temp 98.9 09/06 2320 Pulse 75 09/06 2320 Resp 19 09/06 2320 Patient Weight and BMI Weight (kg): 86.364 BMI: 33.2 Results Findings/Data: Laboratory Tests: 09/06 2015 Chemistry Sodium (134 - 147 mEq/L) 138 Potassium (3.4 - 5.0 mEq/L) 4.1 Chloride (100 - 108 mEq/L) 103 Carbon Dioxide (21 - 33 mEq/l) 25 Anion Gap (0 - 20) 15 BUN (7 - 18 mg/dL) 30 H Creatinine (0.6 - 1.3 mg/dL) 1.7 H Glomerular Filtr Rate (80 - 90) 29.9 L Glucose (70 - 110 mg/dL) 100 Calcium (8.0 - 10.5 mg/dL) 9.2 Laboratory Tests 09/06/212014: [Embedded Image Not Available] Results: labs reviewed, vital signs stable Free Text PE Notes Free Text PE Notes: General appearance: alert, awake, oriented Head/Eyes: atraumatic, normocephalic ENT: moist mucosal membranes, normal pharynx Neck: non-tender, supple/no meningismus, no JVD Cardiovascular: normal capillary refill, normal heart sounds, regular rate rhythm Respiratory: aerating well, clear to auscultatio n, symmetric expansion Abdomen: non-tender, normal bowel sounds, soft, no distention Extremities: no clubbing, no cyanosis, no edema Neuro/PROFESSOR OF ENGLISH: alert, oriented X 3, CNII-XII intact Skin: dry, intact Psychiatry: normal affect, normal judgment/insig ht Diagnosis, Assessment Plan Problem List/A P: 1. Dyspnea Patient presents with fever, nonproductive coug h consistent with viral respiratory infection. She was seen at [facility] department at [place] where chest x-ray was negative f or acute cardiopulmonary pathology and test for both COVID-19 and influenza were negati ve. Patient is currently saturating from 98 -100% on room air and does not require supplemental oxygen We will treat her symptomatically 2. CKD (chronic kidney disease) stage 3, GFR 30 -59 ml/min Patient with known history of stage III CKD, cr eatinine 1.7 on admission Avoid nephrotoxic medications We will monitor 3. Elevated d-dimer Patient with elevated D-dimer of 1860 Will obtain a V/Q scan to rule out pulmonary em bolus 4. HTN (hypertension) Resume home losartan/hydrochlorthiazide 5. Obese BMI 33.2, will reimbursement counselor on diet and lifestyle Free Text A P: Renal diet Heparin for DVT prophylaxis Patient does not have a living will or power of documentation liaison Plan discussed with: patient Resuscitation discussion: Discussed with: patient Code status: full code Quality: Gen [facility] Crit Care VTE Prophylaxis VTE prophylaxis initiated: yes Current Medications Current medication review: I attest that the foregoing medication list in he medical record is true, accurate, and complete to the best of my knowled ge. Advanced Care Plan 65 or Older Discussed with: patient Discussion included: living will, power of attor vikas, code status at 2342 RPT #:[id number] END OF REPORT 2021-09-06 19:46:00-00:00 [facility] ([facility]) EMERGENCY PROVIDER REPORT REPORT#:[id number] REPORT STATUS: Signed DATE:09/06/21 TIME: 1945 PATIENT: ROSMERY SALVADOR SHREYAS UNIT #: [id number] ROOM/BED: [place] [address] AGE: 66 SEX: F PCP PHYS: No Primary or Family Ph ysician SERVICE AUTHOR: Chandu Hill LASER BEAM CUTTER * ALL edits or amendments must be made on the el 21GRAMS/computer document * Chandu Hill 09/06/211945: HPI-Dyspnea/Wheezing Free Text HPI Notes Free Text HPI Notes 66-year-old female with PMHx of HTN and CKD presents with complaint of needing continued evaluation for symptoms of cough, shor tness of breath, chest tightness. States that she has had symptoms ongo ing for the past 3 days and went to [place] emergency department in [facility] where they performed Covid and influenza testing both o f which were negative and then performed additional lab studies to include CBC, CMP, and D-dimer. Jose dallas's GFR was calculated to be 33 and her D-dimer was 1860. Transferred here for VQ scan. Patient did receive x-ray there which golden d no evidence of acute abnormalities. Patient's PCP is Dr. Yan in [place]. She has received th e COVID-19 vaccine which was Materna and is fully vaccinated. General Initial Greet Date/Time 09/06/21 1900 Presentation Chief Complaint Chest pain, Cough, Shortness of breath )( Sudden in Onset? No Review of Systems ROS Statements All systems rev neg except as marked. Free Text ROS Notes Free Text ROS Notes Review of Systems Constitutional Denies: Chills, Fatigue, Fever. Ears/Nose/Throat Denies: Nasal congestion, Throat pain. Respiratory Report: Cough, non-productive, Shortness of cristhian th. Cardiovascular Reports: Chest tightness. Denies: Palpitations. GI Denies: Abdominal pain, Diarrhea, Nausea, Vomiti ng. Musculoskeletal Denies: Back pain. Skin Denies: Erythema, Rash. Past Medical History - Adult Stated Complaint RULE OUT DVT/PE TXFR FROM [place] Allergies Coded Allergies: codeine (Intermediate, NAUSEA 10/25/16) morphine (Intermediate, NAUSEA 10/25/16) Calculated Suicide Risk (nurs) No risk Smoking status: Smoking status for patients 13 years old or old er: Never Smoker Physical Exam Vital Signs Vital Signs First Documented: Result Date Time Pulse Ox 100 09/06 1850 B/P 155/67 09/06 1850 B/P Mean 96 09/06 1850 O2 Delivery Room air 09/06 1850 Temp 38.3 09/06 1850 Pulse 74 09/06 1850 Resp 14 09/06 1850 Last Documented: Result Date Time Pulse Ox 100 09/06 1850 B/P 155/67 09/06 1850 B/P Mean 96 09/06 1850 O2 Delivery Room air 09/06 1850 Temp 38.3 09/06 1850 Pulse 74 09/06 1850 Resp 14 09/06 1850 Review of Vital Signs Reviewed Free Text PE Notes Free Text PE Notes Vital Signs Review of Vital Signs Reviewed Physical Exam General/Const General/Const Awake, Alert, No acute distress, obese MS Head Head Atraumatic, Normocephalic Eyes Eyes Atraumatic, PERRL Ears/Nose/Throat Ears/Nose/Throat Atraumatic, Airway patent, Muc ous membranes moist MS Neck Neck Atraumatic, Supple Resp/Chest Respiratory/Chest Atraumatic, No respiratory di stress, lungs CTA Cardiovascular Cardiovascular Heart rate NL, Regular rhythm, H eart sounds NL MS Back Back Atraumatic, Inspection NL Skin Skin Atraumatic, Color NL, No rash Neurologic Neurologic Oriented X3, Speech NL Psychiatric Psychiatric Affect NL, Mood NL Re-Evaluation MDM )( Re-Evaluation/Progress #1 Text/Dict Note Given patient's GFR will admit to medicine for V Q scan. )( Re-Eval Status Unchanged ED Course Medication(s) Ordered Medication(s) Ordered: Central Nervous System Agents Sig/Eugene Start time Last Medication Dose Route Stop Time Status Admin Lorazepam 1 MG Q4H PRN PRN 09/06 2000 DCD IV 09/07 1856 Electrolytic, Caloric, And Chidi Sig/Eugene Start time Last Medication Dose Route Stop Time Status Admin Sodium Chloride 0 ASDIR PRN 09/06 2000 DCD IV 09/07 1856 Sodium Chloride 0 ASDIR PRN 09/06 1930 DCD IV 09/07 1816 Patient Discharge Departure Vital Signs/Condition Vital Signs First Documented: Result Date Time Pulse Ox 100 09/06 1850 B/P 155/67 09/06 1850 B/P Mean 96 09/06 1850 O2 Delivery Room air 09/06 1850 Temp 38.3 09/06 1850 Pulse 74 09/06 1850 Resp 14 09/06 1850 Last Documented: Result Date Time Pulse Ox 100 09/06 1850 B/P 155/67 09/06 1850 B/P Mean 96 09/06 1850 O2 Delivery Room air 09/06 1850 Temp 38.3 09/06 1850 Pulse 74 09/06 1850 Resp 14 09/06 1850 All vital signs available at the time of this en try have been reviewed. Condition Improved Clinical Impression Clinical Impression Primary Impression: Dyspnea Secondary Impressions: CKD (chronic kidn ey disease) stage 3, GFR 30-59 ml/min, Elevated d-dimer Disposition Decision Admit Admit Physician Name MarlineMichaelgustabo García DO Admit Physician Hospitalist Request Time 1952 Request Date 09/06/21 )( Admission Accepts Yes )( Accepted Time 1952 )( Accepted Date 09/06/21 Call Information will see patient Discharge/Care Plan Counseled Regarding Diagnosis, Need for admissio Kaiden Luciano. 09/08/21 1446: Past Medical History - Adult Home Medications Reported Medications LOSARTAN/HCTZ (HYZAAR 100/25 MG) ATENOLOL (TENORMIN) 25 MG PO DAILY MIRTAZAPINE (REMERON) SERTRALINE (ZOLOFT) 50 MG PO DAILY amLODIPine (NORVASC) ESOMEPRAZOLE MAG DR (NexIUM) 40 MG PO DAILY GABAPENTIN (NEURONTIN) 600 MG PO DAILY Patient Discharge Departure Discharge/Care Plan (Auto) Prescriptions Current Visit Scripts methylPREDNISolone (MEDROL 4 MG DOSEPAK) 4 MG PO ASDIR methylPREDNISolone (MEDROL 4 MG DOSEPAK) 4 MG P O ASDIR #1 PACKET Take as directed on package. Supervising Physician Note MidLv Saw Pt Alone I have reviewed the PA/LASER BEAM CUTTER's note and plan of stephen villarreal. I was available for consultation as needed at al l times during the patient's visit in the emergency department. I agree with the clinical impression , plan and disposition. Electronically Signed by Chandu Hill NP on at 0322 at 1041 RPT #:[id number] END OF REPORT
--- NOTE | 2023-06-26 14:21 | RAD REPORT ---
EXAM DESCRIPTION: US - Extrem Venous W Compress Memo - 06/26/2023 1:59 pm CLINICAL HISTORY: Pain COMPARISON: None. TECHNIQUE: Real-time sonographic evaluation of the bilateral lower extremity deep venous systems was performed. FINDINGS: Normal compressibility, flow augmentation, phasic flow and spontaneous flow is identified in both the left and right lower extremity deep venous systems. No intraluminal filling defects seen. IMPRESSION: No DVT in either lower extremity.
--- NOTE | 2023-06-26 14:43 | ER ---
Nurse's Notes [facility] Name: Estela Salvador Age: 67 yrs Sex: Female : 1955 Arrival Date: 06/26/2023 Time: 12:52 Bed DIS1 Private MD: Kalyan Hong Diagnosis: Edema, unspecified;SARS-associated coronavirus as the cause of diseases classified elsewhere Presentation: 06/26 13:08 Chief complaint: Patient states: "The past few weeks, I noticed some knots behind my mb9 right knee. The back of my right calf cooper. Dr. Hong told me to come here and get checked for a DVT. also, I recently had COVID". Coronavirus screen: At this time, the client does not indicate any symptoms associated with coronavirus-19. Ebola Screen: No symptoms or risks identified at this time. Initial Sepsis Screen: Does the patient meet any 2 criteria? No. Patient's initial sepsis screen is negative. Does the patient have a suspected source of infection? No. Patient's initial sepsis screen is negative. Risk Assessment: Do you want to hurt yourself or someone else? Patient reports no desire to harm self or others. Onset of symptoms was June 26, 2023. 13:08 Method Of Arrival: Ambulatory 9 13:08 Acuity: OANH 3 mb9 Triage Assessment: 13:12 General: Appears in no apparent distress. Behavior is calm, cooperative, appropriate mb9 for age. Pain: Complains of pain in right knee Pain radiates to right leg Quality of pain is described as aching, throbbing, Pain began gradually, Is continuous. Neuro: [place] Agitation-Sedation Scale (RASS): 0 - Alert and Calm Level of Consciousness is awake, alert, obeys commands, Oriented to person, place, time, situation, Appropriate for age. Cardiovascular: Patient's skin is warm and dry. Respiratory: Airway is patent Respiratory effort is even, unlabored, Respiratory pattern is regular, symmetrical, Breath sounds are clear bilaterally. GI: No signs and/or symptoms were reported involving the gastrointestinal system. Derm: Skin is pink, warm \\T\\ dry. Musculoskeletal: Range of motion: intact in all extremities. Historical: - Allergies: 13:11 No Known Allergies; mb9 - PMHx: 13:11 Renal Disease; Stage 3 kidney failure; mb9 - PSHx: 13:11 left knee; Cholecystectomy; mb9 - Immunization history:: Adult Immunizations up to date. - Social history:: Smoking status: Patient denies any tobacco usage or history of. Vital Signs: 13:08 BP 120 / 61; Pulse 64; Resp 18; Temp 98.2; Pulse Ox 96% on R/A; Weight 95.25 kg; Height mb9 5 ft. 3 in. ; 13:08 Body Mass Index 37.20 (95.25 kg, 160.02 cm) mb9 ED Course: 12:55 Patient arrived in ED. mr 12:55 Kalyan Hong DO is Private Physician. mr 12:57 Lisette Davis FNP-C is [facility]. snw 12:57 Earle Wallace MD is Attending Physician. snw 13:11 Triage completed. mb9 13:12 Arm band placed on. mb9 14:01 US Extremity Venous W Compression Memo In Process Unspecified. EDMS 14:42 Kalyan Hong DO is Referral Physician. snw 15:21 No provider procedures requiring assistance completed. Patient did not have IV access mb9 during this emergency room visit. Administered Medications: No medications were administered Medication: 13:14 VIS not applicable for this client. mb9 Outcome: 14:43 Discharge ordered by . snw 15:20 Discharged to home ambulatory. mb9 15:20 Condition: stable 15:20 Discharge instructions given to patient, Instructed on discharge instructions, follow up and referral plans. Demonstrated understanding of instructions, follow-up care, medications, Prescriptions given X 1. 15:21 Patient left the ED. mb9 Signatures: Dispatcher [employer] EDCA Lisette Davis FNP-C FNP-Parris Prem Gisele Delaney, Gisele Wan, RN RN mb9 Corrections: (The following items were deleted from the chart) 13:14 13:08 Chief complaint: Patient states: "The past few weeks, I noticed some knots behind mb9 my right knee. I got an ultrasound done and I'm supposed to get some injections into my veins. The back of my right calf cooper. Dr. Hong told me to come here and get checked for a DVT" mb9
--- NOTE | 2023-06-26 14:43 | EDPHYS ---
Physician Documentation [facility] Name: Estela Salvador Age: 67 yrs Sex: Female : 1955 Arrival Date: 06/26/2023 Time: 12:52 Bed DIS1 Private MD: Hal [facility] ED Physician Earle Wallace HPI: 06/26 13:30 This 67 yrs old Female presents to ER via Ambulatory with complaints of Leg Swelling. snw 13:30 The patient presents with pain, that is acute, swelling. The complaints affect the. snw Context: The problem was sustained at home, resulted from an unknown cause. Onset: The symptoms/episode began/occurred acutely. Severity of symptoms: At their worst the symptoms were moderate. The patient has not experienced similar symptoms in the past. The patient has been recently seen by a physician:. recent covid. Historical: - Allergies: 13:11 No Known Allergies; mb9 - PMHx: 13:11 Renal Disease; Stage 3 kidney failure; mb9 - PSHx: 13:11 left knee; Cholecystectomy; mb9 - Immunization history:: Adult Immunizations up to date. - Social history:: Smoking status: Patient denies any tobacco usage or history of. ROS: 13:29 Constitutional: Negative for fever, chills, and weight loss, Eyes: Negative for injury, snw pain, redness, and discharge. 13:29 Neck: Negative for injury, pain, and swelling, Cardiovascular: Negative for chest pain, palpitations, and edema, Respiratory: Negative for shortness of breath, cough, wheezing, and pleuritic chest pain, Abdomen/GI: Negative for abdominal pain, nausea, vomiting, diarrhea, and constipation, Back: Negative for injury and pain, : Negative for injury, bleeding, discharge, and swelling, MS/Extremity: Negative for injury and deformity, +edema/tenderness to right lower ext Skin: Negative for injury, rash, and discoloration, Neuro: Negative for headache, weakness, numbness, tingling, and seizure. 13:29 ENT: Positive for ear pain. Exam: 13:28 Constitutional: This is a well developed, well nourished patient who is awake, alert, snw and in no acute distress. recent covid, + malaise, + congestion Head/Face: Normocephalic, atraumatic. Eyes: Pupils equal round and reactive to light, extra-ocular motions intact. Lids and lashes normal. Conjunctiva and sclera are non-icteric and not injected. Cornea within normal limits. Periorbital areas with no swelling, redness, or edema. 13:28 ENT: Nares patent. No nasal discharge, no septal abnormalities noted. Tympanic membranes are normal and external auditory canals are clear. Oropharynx with no redness, swelling, or masses, exudates, or evidence of obstruction, uvula midline. Mucous membranes moist. hoarse voice Neck: Trachea midline, no thyromegaly or masses palpated, and no cervical lymphadenopathy. Supple, full range of motion without nuchal rigidity, or vertebral point tenderness. No Meningismus. Chest/axilla: Normal chest wall appearance and motion. Nontender with no deformity. No lesions are appreciated. Cardiovascular: Regular rate and rhythm with a normal S1 and S2. No gallops, murmurs, or rubs. Normal PMI, no JVD. No pulse deficits. Respiratory: Lungs have equal breath sounds bilaterally, clear to auscultation and percussion. No rales, rhonchi or wheezes noted. No increased work of breathing, no retractions or nasal flaring. Abdomen/GI: Soft, non-tender, with normal bowel sounds. No distension or tympany. No guarding or rebound. No evidence of tenderness throughout. Back: No spinal tenderness. No costovertebral tenderness. Full range of motion. Skin: Warm, dry with normal turgor. Normal color with no rashes, no lesions, and no evidence of cellulitis. Neuro: Awake and alert, GCS 15, oriented to person, place, time, and situation. Cranial nerves II-XII grossly intact. Motor strength 5/5 in all extremities. Sensory grossly intact. Cerebellar exam normal. Normal gait. Psych: Awake, alert, with orientation to person, place and time. Behavior, mood, and affect are within normal limits. 13:28 Musculoskeletal/extremity: Extremities: grossly normal except: noted in the right leg: swelling, tenderness. Vital Signs: 13:08 BP 120 / 61; Pulse 64; Resp 18; Temp 98.2; Pulse Ox 96% on R/A; Weight 95.25 kg; Height mb9 5 ft. 3 in. ; 13:08 Body Mass Index 37.20 (95.25 kg, 160.02 cm) mb9 MDM: 13:26 Patient medically screened. snw 13:31 Differential diagnosis: DVT, Carlton's cyst. Data reviewed: vital signs, nurses notes, snw radiologic studies. 06/26 13:16 Order name: US Extremity Venous W Compression Memo; Complete Time: 14:26 snw Administered Medications: No medications were administered Disposition: 16:17 Co-signature as Attending Physician, Earle Wallace MD I reviewed the patient's care rn provided by the Advanced Practice Provider and agree with the diagnosis and treatment plan. Disposition Summary: 06/26/23 14:43 Discharge Ordered Location: Home snw Condition: Stable snw Diagnosis - Edema, unspecified snw - SARS-associated coronavirus as the cause of diseases classified elsewhere snw Followup: snw - With: Emergency Department - When: As needed - Reason: Worsening of condition Followup: snw - With: Kalyan Hong, DO - When: 2 - 3 days - Reason: Recheck today's complaints, Continuance of care, Re-evaluation by your physician Discharge Instructions: - Discharge Summary Sheet snw - Edema, [id number] snw - Aspirin and Your Heart snw - COVID-19 snw - 10 Things You Can Do to Manage Your COVID-19 Symptoms at Home - [facility] [place]NOTE 2] (06/01/2021) snw Forms: - Work release form snw - Medication Reconciliation Form snw - Thank You Letter snw - Antibiotic Education snw - Prescription Opioid Use snw - Patient Portal Instructions snw Prescriptions: - Prednisone 20 mg Oral Tablet - take 2 tablets by ORAL route once daily for 5 days; 10 tablet; Refills: 0, snw Product Selection Permitted Signatures: Dispatcher [employer] EDNV Lisette Davis FNP-C [employer]-Csnw Earle Wallace MD MD rn Breneman, Mary Beth, RN RN mb9 Corrections: (The following items were deleted from the chart) 13:31 13:28 ENT: Nares patent. No nasal discharge, no septal abnormalities noted. Tympanic snw membranes are normal and external auditory canals are clear. Oropharynx with no redness, swelling, or masses, exudates, or evidence of obstruction, uvula midline. Mucous membranes moist. Neck: Trachea midline, no thyromegaly or masses palpated, and no cervical lymphadenopathy. Supple, full range of motion without nuchal rigidity, or vertebral point tenderness. No Meningismus. Chest/axilla: Normal chest wall appearance and motion. Nontender with no deformity. No lesions are appreciated. Cardiovascular: Regular rate and rhythm with a normal S1 and S2. No gallops, murmurs, or rubs. Normal PMI, no JVD. No pulse deficits. Respiratory: Lungs have equal breath sounds bilaterally, clear to auscultation and percussion. No rales, rhonchi or wheezes noted. No increased work of breathing, no retractions or nasal flaring. Abdomen/GI: Soft, non-tender, with normal bowel sounds. No distension or tympany. No guarding or rebound. No evidence of tenderness throughout. Back: No spinal tenderness. No costovertebral tenderness. Full range of motion. Skin: Warm, dry with normal turgor. Normal color with no rashes, no lesions, and no evidence of cellulitis. Neuro: Awake and alert, GCS 15, oriented to person, place, time, and situation. Cranial nerves II-XII grossly intact. Motor strength 5/5 in all extremities. Sensory grossly intact. Cerebellar exam normal. Normal gait. Psych: Awake, alert, with orientation to person, place and time. Behavior, mood, and affect are within normal limits. snw
[2023-06-26 15:39] VITALS: BP 120/61; TEMP 98.2; O2SAT 96
== END 2023-06-26 15:21 | disposition home or self-care (01) ==
LOC: ER 12:52
DX: R60.9 Edema, unspecified (principal); U07.1 COVID-19; N18.30 Chronic kidney disease, stage 3 unspecified
CPT/HCPCS: 93970; 99283